=== PATIENT | female | born 1965 | race Caucasian/White ===

== ENCOUNTER 2017-02-03 09:37 | Inpatient (IN) ==
--- NOTE | 2017-02-02 20:22 | Discharge Summary ---
<Bianca Mccarty - Last Filed: 02/02/17 20:19> Date of Encounter: 02/02/17 - Discharge Diagnosis (1) Arthritis of knee, left Priority: Primary Status: Acute (2) Chronic pain Priority: Secondary Status: Chronic Comments: Takes Percocet 5/325mg TID, #90 - last dose 01/20/17. Will increase this to QID for 1-2 weeks. Alprazolam 1 mg TID #90, LD 01/02/17. Qualifiers: Chronic pain type: other chronic pain Qualified Code(s): G89.29 - Other chronic pain (3) CVA (cerebral vascular accident) Priority: Secondary Status: Chronic Qualifiers: CVA mechanism: unspecified Qualified Code(s): I63.9 - Cerebral infarction, unspecified (4) Lumbar radicular pain Priority: Secondary Status: Chronic - Discharge Medications Home Medications: Aripiprazole [Abilify] 20 mg PO DAILY 11/04/16 [History] Clopidogrel Bisulfate [Plavix] 75 mg PO DAILY 11/04/16 [History] ALPRAZolam [Xanax 1 MG Tablet] 1 mg PO TID PRN #9 tablet 02/02/17 [Rx] OxyCODONE/APAP 5/325 [Percocet 5/325 MG] 1 - 2 each PO Q6HR PRN #40 tablet 02/02 [Rx] ALPRAZolam [Xanax 1 MG Tablet] 1 mg PO BID PRN 02/03/17 [History] Aspirin [Lo-Dose Aspirin EC] 81 mg PO DAILY 02/03/17 [History] Atorvastatin Calcium [Lipitor] 20 mg PO HS 02/03/17 [History] Gabapentin [Neurontin] 600 mg PO TID 02/03/17 [History] Multivitamin [One Daily Essential] 1 each PO DAILY 02/03/17 [History] [place]-3/Dha/Epa/Fish Oil [Fish Oil 1,000 mg Softgel] 1 each PO DAILY 02/03/17 [ History] OxyCODONE/APAP 5/325 [Percocet 5/325 MG] 1 each PO Q6HR PRN 02/03/17 [History] Paroxetine HCl [Paxil] 40 mg PO DAILY 02/03/17 [History] Promethazine [Phenergan] 25 mg PO Q6H PRN 02/03/17 [History] Allergies/Adverse Reactions: Allergies ciprofloxacin [From Cipro] Adverse Reaction (Verified 02/03/17 10:41) Kellenes Primary care physician: Kay Salazar - Patient Status Disposition: Transfer Inpatient Rehab Fac Condition: Good - Discharge Instructions Follow Up With: Kay Salazar, SENIOR ASSOCIATE [Primary Care Provider] - - Hospital Course Hospital course: Ms. Chong is a 51 year old female - Time Spent with Patient Total time spent providing and/or coordinating discharge services: <Juan Jose De La Cruz - Last Filed: 02/06/17 08:11> Date of Encounter: 02/06/17 Time of Encounter: 08:09 - Discharge Diagnosis (1) Arthritis of knee, left Priority: Primary Status: Acute (2) Chronic pain Priority: Secondary Status: Chronic Qualifiers: Chronic pain type: other chronic pain Qualified Code(s): G89.29 - Other chronic pain (3) CVA (cerebral vascular accident) Priority: Secondary Status: Chronic Qualifiers: CVA mechanism: unspecified Qualified Code(s): I63.9 - Cerebral infarction, unspecified (4) Acute blood loss anemia Priority: Primary Status: Acute Primary care physician: Kay Salazar - Patient Status Functional capacity at discharge: uses cane/walker Overall status at discharge: patient is progressing back to baseline - Hospital Course Hospital course: Ms. Chong is a 51 year old female The patient had an uneventful postoperative course. They received antibiotics and physical therapy and were discharged in stable condition. There will follow -up in the office in 2 weeks. Patient with postop anemia secondary to blood loss received 3 units of blood prior to discharge. Aspirin DVT prophylaxis - Time Spent with Patient Total time spent providing and/or coordinating discharge services:
--- NOTE | 2017-02-02 20:30 | Physician Discharge Referral ---
ExtendedCare Referral Info Transfer To: [facility] Institutional Level of Care: Skilled - Diagnosis (1) Arthritis of knee, left Status: Acute (2) Chronic pain Priority: Secondary Status: Chronic (3) CVA (cerebral vascular accident) Priority: Secondary Status: Chronic (4) Lumbar radicular pain Priority: Secondary Status: Chronic Prognosis: Good Aware of Diagnosis: Patient Aware of Prognosis: Patient - Transfer Medications Prescriptions: OxyCODONE/APAP 5/325 [Percocet 5/325 MG] 1 - 2 each PO Q6HR PRN #40 tablet PRN Reason: Pain ALPRAZolam [Xanax 1 MG Tablet] 1 mg PO TID PRN #9 tablet PRN Reason: Prevent Allergic Reaction Home Medications: Aripiprazole [Abilify] 20 mg PO 11/04/16 [History] Atorvastatin [Lipitor] 10 mg PO HS 11/04/16 [History] Clopidogrel Bisulfate [Plavix] 75 mg PO 11/04/16 [History] Gabapentin [Neurontin] 800 mg PO TID 11/04/16 [History] Oxybutynin Chloride [Ditropan Xl] 10 mg PO 11/04/16 [History] Paroxetine [Paxil] 20 mg PO DAILY 11/04/16 [History] ALPRAZolam [Xanax 1 MG Tablet] 1 mg PO TID PRN #9 tablet 02/02/17 [Rx] OxyCODONE/APAP 5/325 [Percocet 5/325 MG] 1 - 2 each PO Q6HR PRN #40 tablet 02/02 [Rx] Allergies/Adverse Reactions: Allergies ciprofloxacin [From Cipro] Adverse Reaction (Verified 01/29/17 14:06) Hives - Respiratory Orders Smoking Cessation: Smoking cessation has been advised. For more information, call the [place] Tobacco Quit Line at 5-698-PBWL-NOW. - Ancillary Orders May use pressure relief devices daily prn, May go on VASU w/family/respon alliance party w /meds at nurse discretion PRN, May consult with Dentist, Health Plan Specialist, Ledger Poster PRN - Mobility Orders Ambulate - Rehabiliation Orders Rehab Potential: Good Rehab Orders: ROM Exercises, Evaluation for Physical Therapy, Evaluation for Speech Therapy - Treatments List/Other: Opsite placed, keep intact until follow appt, unless > 50% saturated. Do not get dressing wet. - Diet Orders Regular CERTIFICATION: I certify that the transfer of the above named patient to an Extended Care Facility is necessary for the continuing treatment of the diagnosis listed. The above information is true and accurate reflection of patient's current condition. Confidential - Redisclosure prohibited without a patient's written consent.
[2017-02-03] MEDS ORDERED: CeFAZolin Pre 2,000 MG/100 ML 2,000 MG/100 ML BAG IVPB ONE (09:59)
[2017-02-03] MEDS ORDERED: Ringers Solution, Lactated 1,000 ML IVC SCH ×2 (10:00→15:03)
--- NOTE | 2017-02-03 10:01 | History & Physical Report ---
Date of Encounter: 02/03/17 Time of Encounter: 10:01 24 Hour HP Update - Instructions Instructions: If the History and Physical is less than 30 days old and was completed prior to A.M. admission and or procedure and has NOT been updated on calendar day of procedure please complete this update prior to performing procedure. - Update Patient reports changes in Medical Condition: No Changes in examination, assessment, or condition: No Changes in Medication: No Preop tests/diagnostics Reviewed: Yes Surgery Remains Indicated: Yes Consent for Planned Operative Procedure(s) Verified: Yes - Pre-Operative Checklist Preoperative Checklist Indicated: No Prophylactic Antibiotic Ordered: Yes Is VTE Prophylaxis Indicated?: Yes
[2017-02-03] MEDS ORDERED: *HR* FentaNYL (PF) 100 MCG/2 ML VIAL ONE (10:25)
[2017-02-03] MEDS ORDERED: *HR* Propofol 200 MG/20 ML VIAL IVP ONE (10:25)
[2017-02-03] MEDS ORDERED: *HR* Midazolam HCl 2 MG/2 ML VIAL ONE (10:25)
[2017-02-03] MEDS ORDERED: *HR* HYDROmorphone (PF) 1 MG/ML SYRINGE IVP PRN (10:32)
[2017-02-03] MEDS ORDERED: Famotidine 20 MG/2 ML VIAL IVP ONE (10:45)
[2017-02-03] MEDS ORDERED: Gabapentin 300 MG CAPSULE PO ONE (10:45)
--- NOTE | 2017-02-03 10:48 | Anesthesia Evaluation PreOp ---
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: CVA (Secondary to cardiac septal defect) Other Medical History: Other (Morbid Obesity) Anesthesia History: No Prior Anesthetic Complications : No Alcohol Use: none Drug use: none Medications and Allergies Aripiprazole [Abilify] 20 mg PO DAILY 11/04/16 [History] Clopidogrel Bisulfate [Plavix] 75 mg PO DAILY 11/04/16 [History] ALPRAZolam [Xanax 1 MG Tablet] 1 mg PO TID PRN #9 tablet 02/02/17 [Rx] OxyCODONE/APAP 5/325 [Percocet 5/325 MG] 1 - 2 each PO Q6HR PRN #40 tablet 02/02 [Rx] Allergies ciprofloxacin [From Cipro] Adverse Reaction (Verified 02/03/17 10:41) Hives - Meds/Allergy Pre-op Review Medications Reviewed: Yes Allergies Reviewed: Yes Beta Blockers on Current Med List: No Anesthesia Results - Labs Laboratory Tests 01/29/17 01/29/17 14:12 14:12 Hgb 12.3 Hct 37.0 Plt Count 182 Sodium 140 Potassium 3.5 BUN 10 Creatinine 0.80 - Imaging EKG: report reviewed (SR) Anesthesia Exam O2 Sat Height 1.73 m Height 1.73 m Height 1.73 m Weight 118.388 kg Weight 118.388 kg Weight 118.388 kg O2 Sat by Pulse Oximetry 93 O2 Sat by Pulse Oximetry 93 Vital Signs Temp Pulse Resp BP Pulse Ox 98.7 F 87 18 134/90 93 02/03/17 10:01 02/03/17 10:01 02/03/17 10:01 02/03/17 10:01 02/03/17 10:01 Height: 5'8 Weight: 261 lbs NPO (# of Hours): MN Pain Scale: 0 - HEENT Pupil (Motor): Pupils equal, EOMI Mallampati: III Teeth: Normal Oral Opening: Less than or equal to 3 - ELECTRONIC PUBLISHER LOC: Oriented ELECTRONIC PUBLISHER Motor: Normal LUE, Normal LLE, Normal Face, Deficit RUE (slight weakness), Deficit RLE (slight weakness) ELECTRONIC PUBLISHER Sensory: Normal: RUE, LUE, RLE, LLE, Face - Cardiac Rhythm: Regular Murmur: None JVD: No Carotid Bruit: No - Pulmonary Breath Sounds: bilateral Clear Respiratory Effort: Symmetrical Anesthesia Assess/Plan ASA Score: 3 (CVA MO SIMEON) Modified Bev Scale for Level of Consciousness: Cooperative, oriented, and tranquil Anesthetic Plan: General, Regional Monitoring Plan: Standard Monitors Recovery Plan: PACU (Discussed GA and RA, agrees to proceed)
[2017-02-03] MEDS ORDERED: *HR* Midazolam HCl 5 MG/5 ML VIAL IVP ONE (11:01)
[2017-02-03] MEDS ORDERED: Dexamethasone 4 MG/ML VIAL ONE (11:38)
[2017-02-03] MEDS ORDERED: Ondansetron 4 MG/2 ML VIAL ONE (11:38)
[2017-02-03] MEDS ORDERED: Lidocaine -MPF 2% 2 ML VIAL ONE (11:38)
--- NOTE | 2017-02-03 11:49 | Anesthesia Procedures ---
Date of Encounter: 02/03/17 Time of Encounter: 10:45 Procedures: Anesthesia - Nerve Block Procedure Date: 02/03/17 Time: 11:15 Pre-op Diagnosis: Osteoarthritis Knee Surgical Procedure: TKA Checklist: Correct Patient Identifier Correct side: Left Blood Thinner: No Monitor Applied: EKG, BP, Pulse Oximetry Supplemental Oxygen via Nasal Cannula (L/min): 2 Sedation: Versed (mg): 5 Sedation: Fentanyl (mcg): 50 Indication: Post Op Analgesia Pre-op Neuro Deficits: Yes (slight right side deficit) Block Type: Femoral, Other (IPACK) Catheter placed: No Depth at skin (cm): 3 Sterile Technique: Yes Ultrasound used: Yes Anatomy identified: Yes Visual spread of Local: Yes Neuro Stimulation: Yes Nerve Stimulator Range: >0.4 - 0.6 mA Blood on Needle Aspiration: No Smooth Injection of Local: Yes Pain with Injection of Local: No Prep: Chlorhexadine Needle: 22 x 50 mm Stimuplex Local: 0.25% Bupivicaine w/Clonidine 20 mcg/cc, Other (Marcine 0.5%) Volume (cc): 30 Number of Attempts: 1 Complications: None/effective block Vitals: Vital Signs/O2 Sat/Glucose, Most Current Temp Pulse Resp BP Pulse Ox 02/03/17 11:27 88 16 137/94 97 02/03/17 11:18 98 16 143/92 98 02/03/17 11:07 98.7 F 84 18 142/83 98 02/03/17 10:04 98.7 F 87 18 134/90 93 02/03/17 10:01 98.7 F 87 18 134/90 93
[2017-02-03] MEDS ORDERED: *HR* Rocuronium Bromide 50 MG/5 ML VIAL ONE (12:09)
--- NOTE | 2017-02-03 12:30 | Orthopedic Operative Note ---
Date of procedure: 02/03/17 Pre-op diagnosis: Left knee arthritis Post-op diagnosis: same Procedure: Procedure: Left Total knee replacement Estimated blood loss: 600 cc Hardware: Metal and polyethylene replacement: Biomet Femur: 70, 16 x 120 Tibia: 75, 14 x 120 Nevaeh insert: 10 Patella: 34 Exam Under anesthesia: Full flexion and extension no instability Procedural Notes: Grade 4 arthritic changes medial compartment and patellofemoral joint. Operative procedure: The patient was brought to the operating room and placed on the operating room table. After general anesthesia was administered the operative knee was examined. Findings were noted in the exam under anesthesia. The operative extremity was prepped and draped in sterile surgical fashion. The patient received IV antibiotics prior to skin incision. A standard midline incision was made centered over the patella. The incision was made through the skin and subcutaneous tissue. A medial parapatellar tendon approach was performed. Care was taken to preserve tissue along the medial aspect of the patella. And to protect the patella tendon. The deep MCL was released off the medial tibia. The infra patella fat pad was excised. Knee was brought into flexion. Patient noted to have grade 4 arthritic changes medial compartment and patellofemoral joint. The entry hole was made for the intramedullary femoral guide. The guide was seated in 6 degrees of valgus. Anterior cut was made followed by the distal cut. The PCL the medial and the lateral menisci were excised. The tibia was subluxed forward. The entry hole was made for the intramedullary tibial guide. Guide was seated to resect 2 mm off the more abnormal side. The knee was brought into flexion the distal femur was sized to a 70 The femur was first reamed to a 16 x 120 The femoral guide was seated, the anterior cut was made followed by the posterior condylar cut, followed by the chamfer cuts. The finishing guide was seated the box cut was made. Trial had good fit and fixation The tibia was sized to a an 75 The tibia was first reamed 14 x 120 Trial reduction revealed full extension no varus valgus instability with the appropriate 10 insert. The patella was everted and cut was made at the level of the insertion of the quadriceps and patella tendon. The patella was sized to a 34 the guide was seated and the lug holes are drilled. Trial reduction revealed excellent patella tracking. All trial components were removed all bony surfaces were irrigated. Components were assembled on the back table. The femur was cemented first followed by the tibia. The 10 Nevaeh was seated and secured. The knee was brought into full extension. The patella was cemented and held in place with the patellar holding clamp. After the cement had hardened, the knee sat for 2 minutes with a Betadine saline solution. The knee was then irrigated out with 2 L of pulse irrigation. The extensor mechanism was closed with #2 FiberWire suture and #2 PDS suture. The subcutaneous tissue was then irrigated and closed deep with #1 PDS suture superficially with 0 PDS suture and skin was closed with skin mars The patient was then placed in a sterile dressing and a postoperative brace extubated and transferred to recovery room in stable condition. Anesthesia: LISSETTE Surgeon: Juan Jose De La Cruz [employer] Operator: Bianca Mccarty Condition: stable Disposition: PACU
[2017-02-03] MEDS ORDERED: Neostigmine Methylsulfate 3 MG/3 ML SYRINGE ONE (12:45)
[2017-02-03] MEDS ORDERED: Ketorolac 30 MG/ML VIAL ONE (13:37)
--- NOTE | 2017-02-03 13:58 | Anesthesia Evaluation Post Op ---
Date of Encounter: 02/03/17 Time of Encounter: 13:54 - Vital Signs Vital Signs: vss - Lungs Lungs: Clear Ascult./Percussion - Airway Airway: Non-obstructed - Cardiovascular Baseline Rhythm - Mental Status Mental Status: Asleep with brisk response to light stimulation - Pain Pain Scale used: Lucero-Escobar (Faces) - Nausea Vomiting Nausea Vomiting: Not Present - Hydration Hydration: Ice chips - Discharge PostOp Status: Transfer Patient to floor (SIMEON patient with CPAP usage at home, continuous pulse ox ordered.)
[2017-02-03 14:02] LABS: Hematocrit 35.7 % (35.3-44.9); Hemoglobin 11.8 g/dL (11.5-15.4)
[2017-02-03] MEDS ORDERED: Sennosides 8.6 MG TABLET PO PRN (15:03)
[2017-02-03] MEDS ORDERED: *HR* OxyCODONE Immed Rel 5 MG TABLET PO PRN (15:03)
[2017-02-03] MEDS ORDERED: Naloxone 0.4 MG/ML INJ IVP PRN (15:03)
[2017-02-03] MEDS ORDERED: MOM Conc 10 ML UD.LIQ PO PRN (15:03)
[2017-02-03] MEDS ORDERED: Ondansetron 4 MG/2 ML VIAL IVP PRN (15:03)
[2017-02-03] MEDS: ceFAZolin 3,000 MG in D5% in Water 100 ML IVPB SCH (15:57)
[2017-02-03] MEDS: Gabapentin 300 MG CAPSULE PO SCH ×2 (15:58→21:34)
[2017-02-03] MEDS ORDERED: Bupivacaine/Clonidine Syringe 1 EACH SYRINGE ONE (17:06)
[2017-02-03] MEDS: *HR* Enoxaparin 30 MG/0.3 ML SYRINGE SQ SCH (17:58)
[2017-02-03] MEDS ORDERED: *HR* Enoxaparin 30 MG/0.3 ML SYRINGE SQ SCH (18:00)
[2017-02-03] MEDS ORDERED: Temazepam 15 MG CAPSULE PO PRN (21:00)
[2017-02-03] MEDS: ALPRAZolam 1 MG TABLET PO PRN (21:38)
[2017-02-04] MEDS: ceFAZolin 3,000 MG in D5% in Water 100 ML IVPB SCH
[2017-02-04] MEDS: *HR* OxyCODONE Immed Rel 5 MG TABLET PO PRN ×4 (00:29→22:46)
[2017-02-04] MEDS: *HR* Enoxaparin 30 MG/0.3 ML SYRINGE SQ SCH ×2 (05:35→16:07)
[2017-02-04 05:51] LABS: Hematocrit 27.4 % (35.3-44.9)
[2017-02-04 05:54] LABS: Hemoglobin 8.9 g/dL (11.5-15.4)
[2017-02-04 06:06] LABS: BUN/Creatinine Ratio 16 (6-26); Blood Urea Nitrogen 13 mg/dL (7-20); Calcium 8.2 mg/dL (8.6-10.8); Carbon Dioxide 27 mEq/L (19-29); Chloride 102 mEq/L (98-109); Glucose 133 mg/dL (70-99); Osmolality,Calculated 284 (280-300); Potassium 4.3 mEq/L (3.5-4.5); Sodium 136 mEq/L (136-145); eGFR For African Americans > 60 (> 60); eGFR For Non-African Americans > 60 (> 60)
--- NOTE | 2017-02-04 06:41 | Orthopedics Progress Note ---
Date of Encounter: 02/04/17 Time of Encounter: 06:41 - Assessment and Plan (1) Arthritis of knee, left Current Visit: Yes Status: Acute (2) Chronic pain Current Visit: Yes Status: Chronic Qualifiers: Chronic pain type: other chronic pain Qualified Code(s): G89.29 - Other chronic pain (3) CVA (cerebral vascular accident) Current Visit: Yes Status: Chronic Qualifiers: CVA mechanism: unspecified Qualified Code(s): I63.9 - Cerebral infarction, unspecified Subjective Interval history: Patient was seen this morning doing well without complaints. Afebrile vital signs stable. Operative extremity: Neurovascularly intact Dressing clean dry and intact Calves nontender Assessment and plan: Continue with postoperative care Hemoglobin 8.9 Objective Vital signs: Vital Signs Temp Pulse Resp BP Pulse Ox 02/04/17 03:58 98.5 F 115 17 120/83 96 02/03/17 23:38 98.3 F 101 19 93/62 96 02/03/17 17:35 98.1 F 98 15 101/76 97 02/03/17 17:10 97.6 F 108 15 80/69 98 02/03/17 17:04 93 15 107/78 100 02/03/17 15:27 98.4 F 93 15 107/78 100 02/03/17 15:05 98.5 F 89 16 115/74 99 02/03/17 14:36 98.4 F 88 15 100/70 99 02/03/17 14:30 98.4 F 88 15 100/70 99 02/03/17 13:54 99.5 F 89 16 95/69 100 02/03/17 13:44 91 16 103/73 98 02/03/17 13:34 98.4 F 85 16 99/63 100 02/03/17 13:24 76 14 88/57 95 02/03/17 13:14 92 16 120/82 100 02/03/17 13:04 99.5 F 99 16 106/86 100 02/03/17 11:27 88 16 137/94 97 02/03/17 11:18 98 16 143/92 98 02/03/17 11:07 98.7 F 84 18 142/83 98 02/03/17 10:04 98.7 F 87 18 134/90 93 02/03/17 10:01 98.7 F 87 18 134/90 93 Intake and Output 02/03/17 02/03/17 02/04/17 15:59 23:59 07:59 Intake Total 100 / 100 220 / 220 Output Total 600 / 600 0 / 0 Balance -500 / -500 220 / 220 Intake: IV Fluids 100 / 100 100 / 100 Ancef Premix 2,000 MG/100 100 / 100 ML 2,000 mg In 100 ml @ 200 mls/hr IVPB PREOP ONE Rx#:[id number] Ancef 3,000 MG In 100 / 100 Dextrose 5% 100 ML @ 200 mls/hr IVPB Q8HR JENNIFER Rx#: [id number] Oral 120 / 120 Output: Urine 0 / 0 Estimated Blood Loss 600 / 600 Other: # Bowel Movements 0 Weight 118.388 kg - Labs CBC & BMP: 02/04/17 04:51 02/04/17 04:51 Labs: Abnormal lab results Hgb 8.9 g/dL (11.5-15.4) L D 02/04/17 04:51 Hct 27.4 % (35.3-44.9) L 02/04/17 04:51 Glucose 133 mg/dL (70-99) H 02/04/17 04:51 Calcium 8.2 mg/dL (8.6-10.8) L 02/04/17 04:51 - VTE Documentation of Mechanical Device: Venous foot pump, device Consult Discharge Plan - Plan Referrals: Kay Salazar, RAIL OPERATOR [Primary Care Provider] -
[2017-02-04] MEDS: Gabapentin 300 MG CAPSULE PO SCH ×3 (09:25→20:53)
[2017-02-04] MEDS: *HR* HYDROmorphone (PF) 1 MG/ML SYRINGE IVP PRN ×3 (09:26→20:53)
[2017-02-04] MEDS: ARIPiprazole 10 MG TABLET PO SCH (09:26)
[2017-02-04] MEDS: (Omega-3/Dha/Epa/Fish Oil [Fish Oil 1,000 Mg Softgel] PO SCH (09:26)
[2017-02-04] MEDS: Aspirin Enteric Coated 81 MG Tablet PO SCH (09:26)
[2017-02-04] MEDS: Multivit/Ca/Min/Fe/FA 1 TAB TABLET PO SCH (09:26)
[2017-02-04] MEDS: ALPRAZolam 1 MG TABLET PO PRN (22:54)
[2017-02-05] MEDS: *HR* HYDROmorphone (PF) 1 MG/ML SYRINGE IVP PRN ×2 (00:33→20:30)
[2017-02-05 04:55] LABS: Hematocrit 23.9 % (35.3-44.9)
[2017-02-05] MEDS: *HR* Enoxaparin 30 MG/0.3 ML SYRINGE SQ SCH ×2 (05:01→17:49)
[2017-02-05] MEDS: *HR* OxyCODONE Immed Rel 5 MG TABLET PO PRN ×3 (05:01→13:39)
[2017-02-05 05:09] LABS: BUN/Creatinine Ratio 14 (6-26); Blood Urea Nitrogen 10 mg/dL (7-20); Calcium 8.3 mg/dL (8.6-10.8); Carbon Dioxide 28 mEq/L (19-29); Chloride 99 mEq/L (98-109); Glucose 140 mg/dL (70-99); Osmolality,Calculated 281 (280-300); Potassium 4.2 mEq/L (3.5-4.5); Sodium 135 mEq/L (136-145); eGFR For African Americans > 60 (> 60); eGFR For Non-African Americans > 60 (> 60)
[2017-02-05] MEDS ORDERED: Furosemide 20 MG/2 ML VIAL IVP ONE ×2 (07:29→14:29)
--- NOTE | 2017-02-05 08:25 | Orthopedics Progress Note ---
Date of Encounter: 02/05/17 Time of Encounter: 08:25 - Assessment and Plan (1) Arthritis of knee, left Current Visit: Yes Status: Acute (2) Chronic pain Current Visit: Yes Status: Chronic Qualifiers: Chronic pain type: other chronic pain Qualified Code(s): G89.29 - Other chronic pain (3) CVA (cerebral vascular accident) Current Visit: Yes Status: Chronic Qualifiers: CVA mechanism: unspecified Qualified Code(s): I63.9 - Cerebral infarction, unspecified (4) Acute blood loss anemia Current Visit: Yes Status: Acute Subjective Interval history: Patient was seen this morning doing well without complaints. Afebrile vital signs stable. Operative extremity: Neurovascularly intact Dressing clean dry and intact Calves nontender Assessment and plan: Continue with postoperative care hct 23 2 units prbc Objective Vital signs: Vital Signs Temp Pulse Resp BP Pulse Ox 02/05/17 07:44 98.1 F 124 20 108/72 96 02/05/17 04:27 98 F 123 20 125/76 97 02/04/17 22:16 99.6 F 134 18 135/87 96 02/04/17 19:53 98.2 F 114 16 133/85 97 02/04/17 15:08 98.2 F 121 16 103/72 97 02/04/17 10:54 97.6 F 109 17 113/80 94 Intake and Output 02/04/17 02/05/17 02/05/17 23:59 07:59 15:59 Output Total 300 / 300 Balance -300 / -300 Output: Urine 300 / 300 Other: Meal Dinner Percent of Meal Consumed 5% - Labs CBC & BMP: 02/05/17 04:13 02/05/17 04:13 Labs: Abnormal lab results Hgb 8.0 g/dL (11.5-15.4) L 02/05/17 04:13 Hct 23.9 % (35.3-44.9) L 02/05/17 04:13 Sodium 135 mEq/L (136-145) L 02/05/17 04:13 Glucose 140 mg/dL (70-99) H 02/05/17 04:13 Calcium 8.3 mg/dL (8.6-10.8) L 02/05/17 04:13 - VTE Documentation of Mechanical Device: Intermittent pneumatic compression device Consult Discharge Plan - Plan Referrals: Kay Salazar, ROSEMARIE [Primary Care Provider] -
[2017-02-05] MEDS: ARIPiprazole 10 MG TABLET PO SCH (09:12)
[2017-02-05] MEDS: Gabapentin 300 MG CAPSULE PO SCH ×3 (09:13→20:37)
[2017-02-05] MEDS: Aspirin Enteric Coated 81 MG Tablet PO SCH (09:13)
[2017-02-05] MEDS: Multivit/Ca/Min/Fe/FA 1 TAB TABLET PO SCH (09:13)
[2017-02-05] MEDS: (Omega-3/Dha/Epa/Fish Oil [Fish Oil 1,000 Mg Softgel] PO SCH (09:13)
[2017-02-05] MEDS ORDERED: 0.9 % Sodium Chloride 250 ML ONE ×2 (09:51→14:29)
--- NOTE | 2017-02-05 17:52 | Electrocardiograph Report ---
[place] [id number] Test Date: 2017-02-04 Pat Name: Raya Chong Department: 114 Room: [facility] Gender: F Electronic Lab Technician: MICHELLE : 1965 Requested By: Juan Jose De La Cruz Order Number: [id number] Reading MD: Amaury Jovel MD Measurements Intervals [place] Rate: 132 P: 43 [place]: 149 QRS: -20 QRSD: 96 T: 59 QT: 325 QTc: 403 Interpretive Statements SINUS TACHYCARDIA INCOMPLETE RIGHT BUNDLE BRANCH BLOCK LEFT VENTRICULAR HYPERTROPHY Electronically Signed On 02-05-2017 17:50:46 EDT by Amaury Jovel MD
[2017-02-06] MEDS: *HR* HYDROmorphone (PF) 1 MG/ML SYRINGE IVP PRN ×2 (02:00→06:27)
[2017-02-06] MEDS: *HR* Enoxaparin 30 MG/0.3 ML SYRINGE SQ SCH (05:04)
[2017-02-06 05:19] LABS: Hematocrit 24.6 % (35.3-44.9); Hemoglobin 8.1 g/dL (11.5-15.4)
[2017-02-06] MEDS ORDERED: Furosemide 20 MG/2 ML VIAL IVP ONE (06:13)
[2017-02-06] MEDS: (Omega-3/Dha/Epa/Fish Oil [Fish Oil 1,000 Mg Softgel] PO SCH (09:19)
[2017-02-06] MEDS: Multivit/Ca/Min/Fe/FA 1 TAB TABLET PO SCH (09:28)
[2017-02-06] MEDS: Aspirin Enteric Coated 81 MG Tablet PO SCH (09:28)
[2017-02-06] MEDS: ARIPiprazole 10 MG TABLET PO SCH (09:28)
[2017-02-06] MEDS: Gabapentin 300 MG CAPSULE PO SCH ×2 (09:29→14:21)
[2017-02-06] MEDS: *HR* OxyCODONE Immed Rel 5 MG TABLET PO PRN ×2 (09:29→14:21)
[2017-02-06] MEDS ORDERED: 0.9 % Sodium Chloride 250 ML ONE (10:03)
[2017-02-06 15:05] VITALS: BP 138/81
[2017-02-06] MEDS ORDERED: Furosemide 20 MG TABLET PO ONE (15:08)
== END 2017-02-06 15:45 | DRG 302 ==
LOC: SAMDAY 09:37 → 3NENU 14:06
PROVIDERS: ADMIT Orthopaedic Surgery; ATTEND Orthopaedic Surgery

== ENCOUNTER 2018-08-24 12:08 | Inpatient (IN) ==
[2018-08-24] MEDS ORDERED: ROPIVACAINE HCL/PF 0.5% 30 ML VIAL ONE ×2 (12:25→13:06)
[2018-08-24] MEDS ORDERED: Bupivacaine/Clonidine Syringe 1 EACH SYRINGE ONE ×2 (12:25→13:07)
--- NOTE | 2018-08-24 12:49 | History & Physical Report ---
Date of Encounter: 08/24/18 Time of Encounter: 12:48 24 Hour HP Update - Instructions Instructions: If the History and Physical is less than 30 days old and was completed prior to A.M. admission and or procedure and has NOT been updated on calendar day of procedure please complete this update prior to performing procedure. - Update Patient reports changes in Medical Condition: No Changes in examination, assessment, or condition: No Changes in Medication: No Preop tests/diagnostics Reviewed: Yes Surgery Remains Indicated: Yes Consent for Planned Operative Procedure(s) Verified: Yes - Pre-Operative Checklist Preoperative Checklist Indicated: No Prophylactic Antibiotic Ordered: Yes Is VTE Prophylaxis Indicated?: Yes
--- NOTE | 2018-08-24 12:50 | Anesthesia Evaluation PreOp ---
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 Has had VSD repair 3 years ago), Other (anxiety depression) Other Medical History: Other (obeisty BMI 41) Anesthesia History: No Prior Anesthetic Complications, Past Anesthesia Alcohol Use: none Drug use: none Medications and Allergies Aripiprazole [Abilify] 20 mg PO DAILY 11/04/16 [History] Clopidogrel Bisulfate [Plavix] 75 mg PO DAILY 11/04/16 [History] ALPRAZolam [Xanax 1 MG Tablet] 1 mg PO TID PRN 02/03/17 [History] Aspirin [Lo-Dose Aspirin EC] 81 mg PO DAILY 02/03/17 [History] Atorvastatin Calcium [Lipitor] 20 mg PO HS 02/03/17 [History] Gabapentin [Neurontin] 600 mg PO TID 02/03/17 [History] Multivitamin [One Daily Essential] 1 each PO DAILY 02/03/17 [History] Paroxetine HCl [Paxil] 40 mg PO DAILY 02/03/17 [History] Lisinopril [Zestril] 10 mg PO DAILY 11/21/17 [History] HYDROcodone/Acet 5/325 mg [[place] 5-325 mg] 1 tab PO Q6H PRN 4 Days #12 tab 05/29/18 [Rx] Aspirin Enteric Coated [Aspirin EC] 325 mg PO BID #20 tablet. 08/23/18 [Rx] Docusate [Colace] 100 mg PO BID 10 Days #20 capsule 08/23/18 [Rx] OxyCODONE Immed Rel [Roxicodone 5 MG] 5 mg PO Q6HR PRN 7 Days #28 tablet 08/23/18 [Rx] Allergy/AdvReac Type Severity Reaction Status Date / Time ciprofloxacin [From Cipro] AdvReac Hives Verified 08/24/18 12:48 - Meds/Allergy Pre-op Review Medications Reviewed: Yes Allergies Reviewed: Yes Anesthesia Results - Labs Laboratory Tests 01/02/19 01/02/19 01/02/19 16:30 16:30 16:30 WBC 4.0 L Hgb 11.7 Hct 36.4 Plt Count 234 PT 10.8 INR 1.0 APTT 35.0 Sodium 138 Potassium 4.3 Chloride 102 Carbon Dioxide 29 BUN 15 Creatinine 0.57 L Est GFR (Non-Af Amer) > 60 - Imaging EKG: report reviewed (SINUS RHYTHM INCOMPLETE RIGHT BUNDLE BRANCH BLOCK MODERATE VOLTAGE CRITERIA FOR LVH, CONSIDER NORMAL VARIANT NONSPECIFIC ST-T CHANGES) Anesthesia Exam Vital Signs/O2 Sat/Glucose, Most Recent Temp Pulse Resp BP Pulse Ox 97.3 F L 99 18 146/95 98 08/24/18 12:31 08/24/18 12:31 08/24/18 12:31 08/24/18 12:31 08/24/18 12:31 Weight: 120 kg NPO (# of Hours): > 8 hr - HEENT Pupil (Motor): Pupils equal Mallampati: III Denture Type: Lower: Complete Oral Opening: Greater than 3 - DESIGN ARCHITECT LOC: Oriented DESIGN ARCHITECT Motor: Normal RUE, Normal RLE, Normal Face, Deficit LUE, Deficit LLE DESIGN ARCHITECT Sensory: Normal: RUE, RLE, Face, Deficit: LUE, LLE - Cardiac Rhythm: Regular Murmur: None - Pulmonary Breath Sounds: bilateral Clear Respiratory Effort: Symmetrical Anesthesia Assess/Plan ASA Score: 3 Level of consciousness: Cooperative, Oriented, Tranquil Anesthetic Plan: General, Regional Nerve Block Regional Nerve Block Plan: Femoral, IPACK Reason for No Neuroaxial/Regional Block: Patient on blood thinner (plavix 08/24/2018 last dose) Monitoring Plan: Standard Monitors Recovery Plan: PACU
[2018-08-24] MEDS ORDERED: CeFAZolin Syr 2,000MG/20 ML 2,000 MG/20 ML SYRINGE IVPB ONE (12:51)
[2018-08-24] MEDS ORDERED: Acetaminophen IV 1,000 MG/100 ML INFUS..BTL IVPB ONE (12:57)
[2018-08-24] MEDS ORDERED: Famotidine 20 MG/2 ML VIAL IVP ONE (12:57)
[2018-08-24] MEDS ORDERED: Gabapentin 300 MG CAPSULE PO ONE (12:57)
[2018-08-24] MEDS ORDERED: Celecoxib 100 MG CAPSULE PO ONE (12:57)
[2018-08-24] MEDS ORDERED: Ringers Solution, Lactated 1,000 ML IVC SCH ×2 (13:00→16:09)
[2018-08-24] MEDS ORDERED: *HR* OxyCODONE Immed Rel 5 MG TABLET PO PRN (13:01)
[2018-08-24] MEDS ORDERED: *HR* Promethazine 25 MG/ML VIAL IVP PRN (13:01)
[2018-08-24] MEDS ORDERED: Ondansetron 4 MG/2 ML VIAL IVP ONE (13:01)
[2018-08-24] MEDS ORDERED: Dexamethasone 4 MG/ML VIAL ONE ×2 (13:08→14:29)
[2018-08-24] MEDS ORDERED: Ethanol\\Acetic Acid\\Na Ace\\Ben 1,000 ML IRRIG.SOLN IR ONE (13:23)
[2018-08-24] MEDS ORDERED: *HR* FentaNYL (PF) 100 MCG/2 ML VIAL ONE ×2 (14:07→15:32)
[2018-08-24] MEDS ORDERED: *HR* Succinylcholine 200 MG/10 ML VIAL IVP ONE (14:29)
[2018-08-24] MEDS ORDERED: Lidocaine -MPF 2% 2 ML VIAL ONE (14:29)
[2018-08-24] MEDS ORDERED: Lidocaine -MPF 4% 5 ML AMPUL ONE (14:29)
[2018-08-24] MEDS ORDERED: Ondansetron 4 MG/2 ML VIAL ONE (14:29)
--- NOTE | 2018-08-24 14:45 | Orthopedic Operative Note ---
Date of procedure: 08/24/18 Pre-op diagnosis: Recurrent left patellar total knee instability Post-op diagnosis: same Procedure: Procedure: Open left medial patellofemoral ligament reconstruction with allograft Rec: One Arthrex 9 x 35 bio composite interference screw. Findings: No obvious abnormal rotation of femoral implant no evidence of infection no abnormal patella where Estimated blood loss: 100 mL Procedure: Patient brought to the operating placed on the operative table after general anesthesia was administered left knee was examined patient noted to have full motion no gross instability. The left lower extremity was prepped and draped in the sterile surgical fashion patient received IV antibiotics prior skin incision the incision was made through the old incision through the skin and subcutaneous tissue, hemostasis was obtained with Bovie cautery. Using careful sharp dissection the extensor mechanism was identified. A medial parapatellar tendon approach was performed, care was taken to preserve tissue along the medial aspect of the patella to protect the patella tendon. Fluid encountered was serosanguineous cultures and Gram stain were obtained. Examination of the femoral component revealed no obvious evidence of abnormal rotation, examination of the patella component revealed no evidence of abnormal wear. Decision was made to do a medial patellofemoral ligament reconstruction with allograft. A guidepin was placed across the patella and this was overreamed with a 4 mm reamer. An allograft was fashioned on the back table to fit through this bone tunnel. It was passed without incident. A guidepin was then placed posterior to the stem from medial to lateral with in the incision. This was all extracapsular. This was passed without incident: Overreamed with a 7 mm reamer. The graft was delivered into the femoral socket. Reduction reve aled stable centralization of the patella component. This is then fixed in 45 degrees of flexion. With full tension on the graft. This was secured with a 9 x 35 mm Arthrex bio composite interference screw. This gave good fixation. The extensor mechanism was then repaired and this reduced fashion in a pants over vest fashion with interrupted [id number] vertical #5 FiberWire suture. This was then augmented with a running #5 FiberWire suture. The PA then closed the knee in layers with PDS and Monocryl and skin mars. Patient was placed in a sterile dressing postoperative cast extubated and transferred to recovery room in stable condition. Anesthesia: GETA Surgeon: Juan Jose De La Cruz Was there an administrative services assistant present: Yes Wet Press Tender: Milka Ram Estimated blood loss (cc): 100 Condition: stable Disposition: PACU
[2018-08-24] MEDS ORDERED: *HR* Midazolam HCl 2 MG/2 ML VIAL ONE (15:07)
[2018-08-24] MEDS: *HR* HYDROmorphone (PF) 1 MG/ML SYRINGE IVP PRN ×2 (15:31→15:47)
--- NOTE | 2018-08-24 15:38 | Discharge Summary ---
- NOTES TO OUTPATIENT PROVIDER Notes to Outpatient Provider: Follow up with PCP within 1 week. Follow up with neurology within 2-3 weeks. Orders not resulted at time of discharge: Pending orders 08/24/18 00:01 XR knee LT 1-2V [XR] Routine H/H [Hemoglobin and Hematocrit] [HEME] Routine 08/24/18 07:22 US anesthesia pain block [US] Routine 08/24/18 14:22 Culture,Anaerobic [RM] Routine Culture,Wound [RM] Routine Gram Stain [RM] Routine 08/24/18 14:44 Culture,Anaerobic [RM] Routine Culture,Tissue (Biopsy) [RM] Routine Date of Encounter: 08/28/18 Time of Encounter: 12:40 - Discharge Diagnosis (1) Patellar instability of left knee Priority: Primary Status: Acute (2) Status post total left knee replacement Priority: Primary Status: Acute (3) Hypertension Priority: Secondary Status: Acute Qualifiers: Hypertension type: unspecified Qualified Code(s): I10 - Essential (primary) hypertension (4) SIMEON on CPAP Priority: Secondary Status: Acute (5) Hyperlipidemia Priority: Secondary Status: Acute Qualifiers: Hyperlipidemia type: unspecified Qualified Code(s): E78.5 - Hyperlipidemia, unspecified (6) Anxiety and depression Priority: Secondary Status: Acute (7) Arthritis of knee, left Priority: Secondary Status: Acute (8) CVA (cerebral vascular accident) Priority: Secondary Status: Suspected Qualifiers: CVA mechanism: unspecified Qualified Code(s): I63.9 - Cerebral infarction, unspecified (9) Chronic pain Priority: Secondary Status: Chronic Qualifiers: Chronic pain type: other chronic pain Qualified Code(s): G89.29 - Other chronic pain (10) Lumbar radicular pain Priority: Secondary Status: Chronic (11) Right sided weakness Priority: Secondary Status: Acute - Hospital Course Hospital course: Ms. Chong is a 52 year old female status post Open left medial patellofemoral ligament reconstruction with allograft 08/24/18 with history of patellar instability, HTN, SIMEON on CPAP, h/o CVA, depression/anxiety, HLD. She has a LLC in place and she participated in therapy doing well with a walker. She originally was planned to discharge on 08/26 but at that time she admitted to having worsening tingling and weakness to her right leg and arm and noted to have some difficulty with speech as well and stroke alert was called. CT brain showed no acute bleeding or midline shift, MRI head showed no acute infart. She was evaluated by [facility] stroke teledoc and determined to not be a TPA candidate. Hospitalist was consulted for a stroke workup. Echo was performed and showed non-diagnostic of PFO with agitated bubble study. She has had a prior PFO closure and has a loop recorder (follows at [facility]). Neurology was also consulted and recommended a carotid study which showed 40-50% stenosis to the left distal ICA. Hospitalist and neurologist both in agreement with patient being discharged with her normal plavix and aspirin but increase atorvastatin to 80mg. She will follow up with PCP within 1-2 weeks and neurology in 2-3 weeks. She is stable for discharge at this time. Patient seen at bedside, without complaints. A&O x 3. States she is feeling better. Still has a little residual tingling to right leg but much improved and weakness has improved. She states she is more comfortable in therapy and using walker. Afebrile, vital signs stable. long leg cast intact with no skin breakdown. foot still slightly in plantar flexion but improved from previous cast, patient states she is able to walk better in this one and does not cause a tripping hazard. good motion and sensation to toes Labs reviewed. stable, asymptomatic Pain control: adequate Participating in PT. WBAT All questions and concerns addressed. Educated on use of incentive spirometer. Encouraged ambulation and proper hydration. Patient educated on post-operative restrictions and post-operative care. Assessment and plan: Continue with postoperative care Discharge plan: Home with home health, discharge today - Time Spent with Patient Total time spent providing and/or coordinating discharge services: - Discharge Medications Home Medications: Aripiprazole [Abilify] 20 mg PO DAILY 11/04/16 [History] Clopidogrel Bisulfate [Plavix] 75 mg PO DAILY 11/04/16 [History] ALPRAZolam [Xanax 1 MG Tablet] 1 mg PO TID PRN 02/03/17 [History] Multivitamin [One Daily Essential] 1 each PO DAILY 02/03/17 [History] Paroxetine HCl [Paxil] 40 mg PO DAILY 02/03/17 [History] Lisinopril [Zestril] 10 mg PO DAILY 11/21/17 [History] HYDROcodone/Acet 5/325 mg [[place] 5-325 mg] 1 tab PO Q6H PRN 4 Days #12 tab 05/29/18 [Rx] Aspirin Enteric Coated [Aspirin EC] 325 mg PO BID #20 tablet. 08/23/18 [Rx] Docusate [Colace] 100 mg PO BID 10 Days #20 capsule 08/23/18 [Rx] OxyCODONE Immed Rel [Roxicodone 5 MG] 5 mg PO Q6HR PRN 7 Days #28 tablet 08/23/18 [Rx] Atorvastatin Calcium [Lipitor] 80 mg PO HS #0 08/28/18 [Rx] Allergies/Adverse Reactions: Allergy/AdvReac Type Severity Reaction Status Date / Time ciprofloxacin [From Cipro] AdvReac Hives Verified 08/24/18 12:48 Date of admission: 08/24/18 Primary care physician: Kay Salazar Consults: 08/24/18 16:09 Consult to Occupational Therapy [CONS] Routine Comment: Evaluate, develop and implement POC Reason for Consult: post knee surgery Does patient have active BEDREST order?: No Is patient medically & hemodynamically stable?: Yes Consult to Orthopedic Navigator [CONS] [CONS] Routine Consult to Physical Therapy [CONS] Routine Comment: Evaluate, develop and impliment POC Reason for Consult: post knee surgery Does patient have active BEDREST order?: No Is patient medically & hemodynamically stable?: Yes Consult to Brake Linings Coater [CONS] Routine Reason for SW Consult: post op joint replacement RT Post Op Consult [CONS] Routine 08/26/18 14:46 Consult to Hospitalist [CONS] Stat Consulting Provider: Hospitalist Vielka Reason for Consult: stroke workup Time Notified: 14:46 Call Completed: Yes 08/26/18 16:36 Consult to Neurology [CONS] Routine Consulting Provider: Neurology [facility] Reason for Consult: stroke alert Spoke with Dr. Caceres Call Completed: Yes Discharging clinician: Juan Jose De La Cruz Anticipated date of discharge: 08/28/18 - Impressions Knee X-Ray 08/24/18 00:01 IMPRESSION: Stable appearance of left knee arthroplasty. No acute osseous abnormality. D/ / 08/24/2018 15:44:18 Scotty Pena MD / [facility] Interpreting Provider: Scotty Pena MD Head CT 08/26/18 00:00 IMPRESSION: 1. Findings consistent with presence of focal area of encephalomalacia in the left frontoparietal region suggestive of prior infarct. This represents a new finding when compared to study of 05/27/2012 as described. 2. Tiny focus of low attenuation in the superior right cerebellar hemisphere. Finding may represent volume averaging of sulcus versus tiny focus of remote ischemic change as well. 3. No definite evidence of acute intracranial abnormality. Follow-up MRI examination with diffusion imaging may be helpful for more complete evaluation. Critical results were called by Dr. Zev Santana MD to Scott Barbosa on 08/26/2018 at 14:50. D/ / 08/26/2018 14:58:44 Zev Santana MD / [facility] Interpreting Provider: Zev Santana MD Brain MRI 08/26/18 16:42 IMPRESSION: No acute infarct. D/ / Ryder Benitez MD / Ryder Benitez MD Interpreting Provider: Ryder Benitez MD Echocardiogram 08/27/18 11:00 Impressions: LVEF 65-70%. Normal LV chamber size, wall thickness and function. Normal right ventricular structure and function. Mild aortic regurgitation. No pulmonary hypertension. Non-diagnostic of PFO with agitated saline contrast. Left Ventricular Wall Motion: Rest Echo Findings All wall segments showed normal motion. Findings: Study Quality * Technically sub-optimal due to poor echocardiographic windows. ECG Findings * Normal sinus rhythm. Left Ventricle * LVEF 65-70%. * Normal LV chamber size, wall thickness and function. * Normal left ventricular diastolic function. Right Ventricle * Normal right ventricular structure and function. Left Atrium * Normal left atrial size. Right Atrium * Normal right atrial size. Interatrial Septum * Interatrial septum not well evaluated. * Non-diagnostic of PFO with agitated saline contrast. Aortic Valve * Trileaflet aortic valve. * No aortic stenosis. * Mild aortic regurgitation. Mitral Valve * Normal mitral valve structure. * No mitral stenosis. * No mitral regurgitation. Tricuspid Valve * Normal tricuspid valve structure. * No tricuspid stenosis. * Trace tricuspid regurgitation. * Estimated RVSP is 18 mmHg. * Estimated RA pressure is 3 mmHg. * No pulmonary hypertension. Pulmonic Valve * Pulmonic valve is not well visualized. * No pulmonic stenosis. * No pulmonic regurgitation. Aorta * Normally sized aortic root. Pericardium * The pericardium appears normal. IVC * Normal IVC dimensions and inspiratory collapse. 08/27/18 23:03 - Vascular Preliminary by Meaghan Palm Acct Num: [id number] : 1965 Patient Age: 52 Carotid Duplex Bilateral carotid duplex appears to be 40-59% stenosis in the left distal ICA and non stenotic plaque in the right distal CCA and bifurcation. Initialized on 08/27/18 23:03 - END OF NOTE - Patient Status Disposition: Home Health Service Condition: Good Functional capacity at discharge: uses cane/walker Overall status at discharge: patient is back to baseline - Discharge Instructions Follow Up With: Milka Ram PAC [Physician Honing Machine Operator Production] - 09/03/18 8:15 am (Also 09/11/18 @ 8am) Juan Jose De La Cruz MD [Partnered Physician] - 09/23/18 4:30 pm Dawn Caceres MD [Partnered Physician] - 09/01/18 8:00 am Kay Salazar CNP [Primary Care Provider] - 09/04/18 1:15 pm Additional Instructions: Weight bearing as tolerated . Keep cast clean dry and intact. Follow-up appointments: If there is not an appointment listed below, please call your physician and schedule a follow-up appointment. If you have congestive heart failure and your symptoms return, make an appointment with your physician. Medication List: Carry an up to date list of medications you are taking at all time. We have given you an updated medication list including any new medications that you have been prescribed. Please provide that list to your primary provider Symptoms: If your condition changes or you experience any of the following symptoms, notify your physician immediately: Unusual or worsening pain, fever, persistent nausea and vomiting, bleeding, increase in swelling (especially in your legs), sudden weight gain, extreme dizziness, chest pain, increased drainage or redness from a wound or incision. Go to the emergency department if you experience a problem with breathing. Weights: If you have a history of swelling or shortness of breath, weigh yourself daily and notify your physician if you have a weight gain of two or more pounds in one day or 5 or more pounds in a week. If you experience any of the warning signs for stroke: Sudden numbness or weakness of the face, arm or leg; especially on one side of the body, sudden confusion, trouble speaking or understanding, sudden trouble seeing in one or both eyes, sudden trouble walking, dizziness, loss of balance or coordination, sudden sever headache with no cause; Call 911 or go to the emergency room. Stroke is a medical emergency. Some risk factors for stroke: Age, cigarette smoking, diabetes, excessive alcohol consumption, family history, high blood pressure, overweight, physical inactivity, prior stroke, heart attack, diagnosis of carotid artery stenosis or other artery disease. If you smoke, STOP: Smoking or tobacco use significantly increases your risk of heart and lung disease. Your chance of disease greatly increases if you continue to smoke. For more information, call the [place] tobacco quit line for smoking cessation 0-651-ZJRP-NOW ( ) - Diet and Activity Activity: ambulate only with your walker, as per physical therapy Diet: advance to your usual diet
--- NOTE | 2018-08-24 16:00 | Physician Discharge Referral ---
Home Health/Hosp Referral Info Transfer to: Home Health Attending Provider: Jono - Diagnosis (1) Patellar instability of left knee Priority: Primary Status: Acute (2) Hypertension Priority: Secondary Status: Acute (3) SIMEON on CPAP Priority: Secondary Status: Acute (4) Hyperlipidemia Priority: Secondary Status: Acute (5) Anxiety and depression Priority: Secondary Status: Acute (6) Arthritis of knee, left Priority: Secondary Status: Acute (7) CVA (cerebral vascular accident) Priority: Secondary Status: Suspected (8) Chronic pain Priority: Secondary Status: Chronic (9) Lumbar radicular pain Priority: Secondary Status: Chronic (10) Right sided weakness Priority: Secondary Status: Acute - Respiratory Orders None Smoking Cessation: Smoking cessation has been advised. For more information, call the [place] Tobacco Quit Line at 2-913-MZEA-NOW. - Diet/Nutrition Diet/Nutrition Orders: Regular - Activity Activity Orders: Up ad mark, Ambulate, Chair, Walker - Services Needed Following services are medically necessary services: Nursing, Home Health Aide, Physical Therapy, Occupational Therapy Home Care Orders: Long leg cast in place to left leg. NO knee flexion WBAT with walker Apply cold therapy wrap 3-6x/day for 20 minutes at a time. Encourage ambulation throughout the day Use Incentive spirometer 10x/hour. Elevate affected extremity above heart as tolerated. - Transfer Medications Home Medications: Aripiprazole [Abilify] 20 mg PO DAILY 11/04/16 [History] Clopidogrel Bisulfate [Plavix] 75 mg PO DAILY 11/04/16 [History] ALPRAZolam [Xanax 1 MG Tablet] 1 mg PO TID PRN 02/03/17 [History] Aspirin [Lo-Dose Aspirin EC] 81 mg PO DAILY 02/03/17 [History] Atorvastatin Calcium [Lipitor] 20 mg PO HS 02/03/17 [History] Multivitamin [One Daily Essential] 1 each PO DAILY 02/03/17 [History] Paroxetine HCl [Paxil] 40 mg PO DAILY 02/03/17 [History] Lisinopril [Zestril] 10 mg PO DAILY 11/21/17 [History] HYDROcodone/Acet 5/325 mg [[place] 5-325 mg] 1 tab PO Q6H PRN 4 Days #12 tab 05/29/18 [Rx] Aspirin Enteric Coated [Aspirin EC] 325 mg PO BID #20 tablet. 08/23/18 [Rx] Docusate [Colace] 100 mg PO BID 10 Days #20 capsule 08/23/18 [Rx] OxyCODONE Immed Rel [Roxicodone 5 MG] 5 mg PO Q6HR PRN 7 Days #28 tablet 08/23/18 [Rx] Allergies/Adverse Reactions: Allergy/AdvReac Type Severity Reaction Status Date / Time ciprofloxacin [From Cipro] AdvReac Hives Verified 08/24/18 12:48 Certification: Further, I certify that my clinical findings support that this patient is homebound (i.e. absences from home require considerable and taxing effort and are for medical reasons or pent[employer] services or infrequently or short duration when for other reasons) because: Homebound Reason: Post-surgery restriction and or conditions limit ability to leave home Attestation: My signature below is to certify that this patient is under my care and that I, or nurse practitioner, or a physician telecom assistant working with me, has a [id number] encounter with this patient.
[2018-08-24 16:06] LABS: Hematocrit 36.9 % (35.3-44.9); Hemoglobin 11.3 g/dL (11.5-15.4)
--- NOTE | 2018-08-24 16:06 | Anesthesia Evaluation Post Op ---
Date of Encounter: 08/24/18 Time of Encounter: 16:05 - Vital Signs Vital Signs: Vital Signs/O2 Sat, Most Current Temp Pulse Resp BP Pulse Ox 99.5 F 91 14 129/74 96 08/24/18 15:51 08/24/18 15:51 08/24/18 15:51 08/24/18 15:51 08/24/18 15:51 - Lungs Lungs: Clear Ascult./Percussion - Airway Airway: Non-obstructed - Cardiovascular Regular Rate - Mental Status Mental Status: Alert & Oriented, Answers Appropriately - Pain Pain Scale: 0 Pain Scale used: Numeric (1 - 10) - Nausea Vomiting Nausea Vomiting: Not Present - Hydration Hydration: Ice chips, Has not voided - Discharge PostOp Status: Transfer Patient to floor
[2018-08-24] MEDS ORDERED: Sennosides 8.6 MG TABLET PO PRN (16:09)
[2018-08-24] MEDS ORDERED: Ondansetron 4 MG/2 ML VIAL IVP PRN (16:09)
[2018-08-24] MEDS ORDERED: MOM Conc 10 ML UD.LIQ PO PRN (16:09)
[2018-08-24] MEDS ORDERED: Naloxone 0.4 MG/ML INJ IVP PRN (16:09)
[2018-08-24] MEDS: traMADol 50 MG TABLET PO PRN (17:21)
[2018-08-24] MEDS: *HR* Enoxaparin 30 MG/0.3 ML SYRINGE SQ SCH (17:22)
[2018-08-24] MEDS ORDERED: *HR* Enoxaparin 30 MG/0.3 ML SYRINGE SQ SCH (18:00)
[2018-08-24] MEDS: *HR* OxyCODONE Immed Rel 5 MG TABLET PO PRN (20:41)
[2018-08-24] MEDS: ceFAZolin sodium 3,000 MG in 0.9 % Sodium Chloride 100 ML IVPB SCH (20:45)
[2018-08-25] MEDS: ALPRAZolam 1 MG TABLET PO PRN ×2 (00:28→15:08)
[2018-08-25] MEDS: ceFAZolin sodium 3,000 MG in 0.9 % Sodium Chloride 100 ML IVPB SCH (06:18)
[2018-08-25] MEDS: *HR* OxyCODONE Immed Rel 5 MG TABLET PO PRN ×5 (06:19→23:44)
--- NOTE | 2018-08-25 06:41 | Orthopedics Progress Note ---
Date of Encounter: 08/25/18 Time of Encounter: 06:41 Subjective Interval history: Patient was seen this morning doing well without complaints. Afebrile vital signs stable. Operative extremity: Neurovascularly intact Cast intact Assessment and plan: Continue with postoperative care Hematocrit 36 plan for discharge tomorrow Objective Vital signs: Vital Signs Temp Pulse Resp BP Pulse Ox 08/25/18 03:54 97.7 F 86 15 103/70 93 08/24/18 23:08 98.2 F 106 17 116/80 93 08/24/18 18:46 98.0 F 99 16 126/87 94 08/24/18 18:12 97.5 F L 99 18 123/88 95 08/24/18 17:15 97.4 F L 97 16 135/88 95 08/24/18 16:46 98.6 F 96 18 95 08/24/18 16:15 98.4 F 96 16 125/83 95 08/24/18 16:01 99.5 F 95 14 118/73 97 08/24/18 15:51 99.5 F 91 14 129/74 96 08/24/18 15:41 94 14 120/86 98 08/24/18 15:31 95 16 144/84 98 08/24/18 15:21 97.5 F L 105 18 136/62 100 08/24/18 13:32 91 18 145/99 98 08/24/18 12:31 97.3 F L 99 18 146/95 98 Intake and Output 08/24/18 08/24/18 08/25/18 15:59 23:59 07:59 Intake Total 340 / 340 50 / 50 Output Total 100 / 100 0 / 0 Balance -100 / -100 340 / 340 50 / 50 Intake: IV Fluids 100 / 100 Ancef 3,000 MG In 0.9 % Sodium 100 / 100 Chloride 100 ML @ 200 mls/hr IVPB Q8H [facility] Rx#:[id number] Oral 240 / 240 50 / 50 Output: Urine 0 / 0 Estimated Blood Loss 100 / 100 Other: # Voids 1 0 Weight 120.202 kg 128 kg 126.9 kg Patient Weight 08/25/18 23:59 Weight 126.9 kg - Labs CBC & BMP: 08/24/18 15:38 Labs: Abnormal lab results Hgb 11.3 g/dL (11.5-15.4) L 08/24/18 15:38 Consult Discharge Plan - Plan Referrals: Kay Salazar CNP [Primary Care Provider] -
[2018-08-25] MEDS: ARIPiprazole 10 MG TABLET PO SCH (09:06)
[2018-08-25] MEDS: Aspirin Enteric Coated 81 MG Tablet PO SCH (09:07)
[2018-08-25] MEDS: Multivit/Ca/Min/Fe/FA 1 TAB TABLET PO SCH (09:07)
[2018-08-25] MEDS: *HR* Enoxaparin 30 MG/0.3 ML SYRINGE SQ SCH ×2 (09:10→17:15)
[2018-08-25 10:13] LABS: Hematocrit 32.2 % (35.3-44.9); Hemoglobin 10.4 g/dL (11.5-15.4)
[2018-08-25 10:33] LABS: BUN/Creatinine Ratio 23 (6-26); Blood Urea Nitrogen 15 mg/dL (6-20); Calcium 8.7 mg/dL (8.6-10.3); Carbon Dioxide 24 mEq/L (23-29); Chloride 105 mEq/L (98-107); Glucose 161 mg/dL (70-105); Osmolality,Calculated 288 (280-300); Potassium 3.6 mEq/L (3.5-5.1); Sodium 137 mEq/L (136-145); eGFR For Non-African Americans > 60 (> 60)
--- NOTE | 2018-08-25 17:35 | Event Note ---
Date of Encounter: 08/25/18 Time of Encounter: 12:20 PCR - POD#1 Open left medial patellofemoral ligament reconstruction with all ograft 08/24/18 Patient seen at bedside, without complaints. A&O x 3 Afebrile, vital signs stable. long leg cast intact with no skin breakdown. good motion and sensation to toes Labs reviewed. H/H - 10.4/32.2 stable, asymptomatic Pain control: adequate Participating in PT. WBAT All questions and concerns addressed. Educated on use of incentive spirometer. Encouraged ambulation and proper hydration. Patient educated on post-operative restrictions and post-operative care. Assessment and plan: Continue with postoperative care Discharge plan: Home, discharge possibly tomorrow.
[2018-08-25] MEDS: *HR* OxyCODONE/APAP 5/325 TABLET PO PRN (21:17)
[2018-08-26] MEDS: *HR* OxyCODONE/APAP 5/325 TABLET PO PRN (01:40)
[2018-08-26] MEDS: *HR* OxyCODONE Immed Rel 5 MG TABLET PO PRN ×4 (03:56→20:40)
[2018-08-26] MEDS: *HR* Enoxaparin 30 MG/0.3 ML SYRINGE SQ SCH ×2 (05:42→20:40)
[2018-08-26] MEDS: traMADol 50 MG TABLET PO PRN ×2 (05:42→23:23)
[2018-08-26 06:44] LABS: Hematocrit 31.1 % (35.3-44.9); Hemoglobin 9.9 g/dL (11.5-15.4)
[2018-08-26 07:03] LABS: BUN/Creatinine Ratio 25 (6-26); Blood Urea Nitrogen 15 mg/dL (6-20); Calcium 8.6 mg/dL (8.6-10.3); Carbon Dioxide 25 mEq/L (23-29); Chloride 103 mEq/L (98-107); Glucose 91 mg/dL (70-105); Osmolality,Calculated 286 (280-300); Potassium 3.5 mEq/L (3.5-5.1); Sodium 138 mEq/L (136-145); eGFR For Non-African Americans > 60 (> 60)
[2018-08-26] MEDS: ALPRAZolam 1 MG TABLET PO PRN (07:11)
--- NOTE | 2018-08-26 07:59 | Orthopedics Progress Note ---
Date of Encounter: 08/26/18 Time of Encounter: 07:58 Subjective Interval history: Patient was seen this morning complains of anterior knee pain. We will change the cast before discharge. Afebrile vital signs stable. Operative extremity: Neurovascularly intact Cast intact Assessment and plan: Continue with postoperative care Hematocrit 31 plan for discharge today Objective Vital signs: Vital Signs Temp Pulse Resp BP Pulse Ox 08/26/18 06:34 97.9 F 94 16 118/76 97 08/26/18 04:14 97.4 F L 89 17 116/81 94 08/25/18 23:07 98.4 F 98 15 113/78 94 08/25/18 18:28 98.6 F 95 16 120/82 95 08/25/18 17:02 98.1 F 93 15 106/72 93 08/25/18 12:02 97.5 F L 74 15 121/63 96 08/25/18 10:53 98.3 F 96 16 113/77 94 Intake and Output 08/25/18 08/25/18 08/26/18 15:59 23:59 07:59 Intake Total 220 / 220 300 / 300 200 / 200 Output Total 150 / 150 700 / 700 Balance 70 / 70 300 / 300 -500 / -500 Intake: Oral 220 / 220 300 / 300 200 / 200 Output: Urine 150 / 150 700 / 700 Other: Meal Lunch Dinner Percent of Meal Consumed 80% 55% # Voids 1 1 Weight 128.5 kg Patient Weight 08/26/18 23:59 Weight 128.5 kg - Labs CBC & BMP: 08/26/18 06:27 08/26/18 06:27 Labs: Abnormal lab results Hgb 9.9 g/dL (11.5-15.4) L 08/26/18 06:27 Hct 31.1 % (35.3-44.9) L 08/26/18 06:27 Consult Discharge Plan - Plan Referrals: Kay Salazar, ROSEMARIE [Primary Care Provider] -
[2018-08-26] MEDS: Multivit/Ca/Min/Fe/FA 1 TAB TABLET PO SCH (09:00)
[2018-08-26] MEDS: ARIPiprazole 10 MG TABLET PO SCH (09:01)
[2018-08-26] MEDS: Aspirin Enteric Coated 81 MG Tablet PO SCH (09:01)
--- NOTE | 2018-08-26 15:13 | Event Note ---
Date of Encounter: 08/26/18 Time of Encounter: 11:50 First evaluation 11:50 PCR - POD#1 Open left medial patellofemoral ligament reconstruction with allograft 08/24/18 Patient seen at bedside, without complaints. A&O x 3. Currently getting long leg cast changed due to her knee pain. Afebrile, vital signs stable. long leg cast intact with no skin breakdown. good motion and sensation to toes Labs reviewed. H/H - 9.9/31.1 stable, asymptomatic Pain control: adequate Participating in PT. WBAT All questions and concerns addressed. Educated on use of incentive spirometer. Encouraged ambulation and proper hydration. Patient educated on post-operative restrictions and post-operative care. Assessment and plan: Continue with postoperative care Discharge plan: Home with home health, plan for DC today UPDATE: Nurse later notified me that while she was reviewing the DC paperwork patient expressed concern that she was having worsening numbness and weakness to the right foot and leg. She states she did wake up the the tingling in leg that progressively worsened during day and after cast change to left leg. She thought it may have been positional but is not improving. She states this leg will get tingly if sitting in a car for a long time but usually resolves within minutes. This continues to worsen. She also noted that therapy was much more difficult for her this morning compared to yesterday and now unable to feel her foot to put weight through it in order to stand which is a significant change from yesterday. She was able to dorsiflex foot and toes, no foot drop noted. She then stated that her right arm has had progressive tingling and "feels different" starting this morning too, worsening. On exam she was tilting her head to her right side but could correct to neutral when brought to her attention. 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 She could hold both arms up equally but did have a slight tremor to right arm which she states is her baseline. She does have a history of previous stroke which did affect her right side of body. She admits the symptoms to her right arm and leg are much worse currently than usual. I discussed case with her nurse and the charge nurse and the decision was made to call a rapid response/stroke alert at that time. Patient was in agreement with this plan as well.
[2018-08-26 15:35] LABS: Basophils % 0.5 %; Eosinophils # 0.1 K/mcL (0.0-0.6); Eosinophils % 1.2 %; Hematocrit 31.9 % (35.3-44.9); Hemoglobin 10.3 g/dL (11.5-15.4); Immature Granulocytes % 0.3 % (0-4); Mean Corpuscular HGB Conc 32.3 g/dL (31.6-35.5); Mean Corpuscular Hemoglobin 31.7 pg (28.0-33.3); Mean Corpuscular Volume 98.2 fL (83.0-100.0); Monocytes # 0.4 K/mcL (0.0-1.3); Monocytes % 6.9 %; Neutrophils # 3.9 K/mcL (1.6-8.9); Platelet Count 208 K/mcL (140-400); Red Blood Count 3.25 M/mcL (3.82-4.97); Segmented Neutrophils % 60.1 %
[2018-08-26 15:47] LABS: BUN/Creatinine Ratio 19 (6-26); Blood Urea Nitrogen 13 mg/dL (6-20); Calcium 8.8 mg/dL (8.6-10.3); Carbon Dioxide 29 mEq/L (23-29); Chloride 104 mEq/L (98-107); Glucose 100 mg/dL (70-105); Osmolality,Calculated 290 (280-300); Potassium 3.6 mEq/L (3.5-5.1); Sodium 140 mEq/L (136-145); eGFR For Non-African Americans > 60 (> 60)
[2018-08-26 15:48] LABS: Troponin I < 0.03 ng/mL (< 0.04)
[2018-08-26 15:49] LABS: Prothrombin Time 11.1 Seconds (9.4-12.1)
[2018-08-26 15:52] LABS: Activated Partial Thrombo Time 32.2 Seconds (26.0-36.0)
--- NOTE | 2018-08-26 16:23 | Internal Medicine Consult Note ---
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 Continuing IHSS Continue aspirin daily, increase Lipitor to 80 mg at bedtime Obtain brain MRI and echocardiogram Consult neurology for evaluation Qualifiers: CVA mechanism: unspecified Qualified Code(s): I63.9 - Cerebral infarction, unspecified - Time Spent With Patient Total time spent is greater than 50% in coordination of care (as documented) at patient's floor/unit and/or counseling patient: Internal Medicine - CN: HPI - Data of Consult Patient: new to practice Requesting Physician: Juan Jose De La Cruz MD - Consult Narrative Reason for consult: TIA, Stroke alert History of present illness: Ms. Chong is a 52 YO F with PMH of CVA , anxiety and depression, obstructive sleep apnea on CPAP, hypertension, osteoarthritis, was admitted by the orthopedic team for a left knee surgery. Surgery. The patient is postop day 2 today. Rapid response was called on the patient due to complaints of right upper and lower strength rate numbness. She had no speech slurring, she had no facial paralysis. She had no focal motor weakness. She is on daily baby aspirin as well as Lipitor due to prior history of multiple ischemic CVAs. She has a residual deficit of word-finding difficulty, RUE and LE numbness and tingling, and occasional attention deficit At time of review, with spouse at the bedside, she reports some improvement but not total resolution Stat Head CAT scan done showed encephalomalacia in the left frontoparietal region which is chronic. Right cerebellar remote infarct. There was no acute intracranial abnormality. Patients vital signs were stable. Labs from today were noted to be normal. Medicine was consulted for evaluation due to suspected CVA. We will recommend a brain MRi and ECHO to complete the CVA work up. She has had a prior PFO closure and has a loop recorder (follows at [facility]). We will recommend awaiting all these results prior to patient's discharge We have also increased lipitor to 80mg HS at this time, check A1C and lipid panel with am labs Keep on telemetry Plan of care discussed with patient and her partner who verbalized understanding Other medical problems remain stable Past Med Surg Social Fam HX - Past Medical History Medical history: CVA, hyperlipidemia, hypertension Additional medical history: lumbar DDD Psychiatric history: anxiety, depression - Past Surgical History Surgical History: cholecystectomy, hysterectomy Additional surgical history: Tonsillectomy. Left total knee - Social History Smoking Status: Never smoker Smokeless Tobacco Status: No Alcohol use: none Drug use: none - Family History Father Living Status: Cause of : 71 Hx Family Cardiac Disorders: Yes Hx Family Cancer: Yes (prostate with mets) - Constitutional Constitutional: as per HPI - Neurological Neurological ROS: as per HPI Internal Medicine - CN: Meds Aripiprazole [Abilify] 20 mg PO DAILY 11/04/16 [History] Clopidogrel Bisulfate [Plavix] 75 mg PO DAILY 11/04/16 [History] ALPRAZolam [Xanax 1 MG Tablet] 1 mg PO TID PRN 02/03/17 [History] Aspirin [Lo-Dose Aspirin EC] 81 mg PO DAILY 02/03/17 [History] Atorvastatin Calcium [Lipitor] 20 mg PO HS 02/03/17 [History] Multivitamin [One Daily Essential] 1 each PO DAILY 02/03/17 [History] Paroxetine HCl [Paxil] 40 mg PO DAILY 02/03/17 [History] Lisinopril [Zestril] 10 mg PO DAILY 11/21/17 [History] HYDROcodone/Acet 5/325 mg [Springer 5-325 mg] 1 tab PO Q6H PRN 4 Days #12 tab 05/29/18 [Rx] Aspirin Enteric Coated [Aspirin EC] 325 mg PO BID #20 tablet. 08/23/18 [Rx] Docusate [Colace] 100 mg PO BID 10 Days #20 capsule 08/23/18 [Rx] OxyCODONE Immed Rel [Roxicodone 5 MG] 5 mg PO Q6HR PRN 7 Days #28 tablet 08/23/18 [Rx] Allergy/AdvReac Type Severity Reaction Status Date / Time ciprofloxacin [From Cipro] AdvReac Hives Verified 08/24/18 12:48 Hospitalist - CN: Exam - Constitutional Vitals: Temp Pulse Resp BP Pulse Ox 97.6 F 96 16 109/72 95 08/26/18 15:26 08/26/18 15:26 08/26/18 15:26 08/26/18 15:26 08/26/18 15:26 General appearance IM: Present: A&O X 3, morbidly obese, pleasant, no acute distress Exam: See below - Respiratory Respiratory exam: Present: CTAB - Cardiovascular Cardiovascular exam IM: Present: RRR, +S1, +S2. Absent: systolic murmur, tachycardia - GI/Abdominal GI/Abdominal exam IM: Present: soft, no peritoneal signs. Absent: tenderness - Extremities Exam Additional comments: LLE in cast RLE with sensation deficit - Neurological Exam Neurological exam: Present: alert, motor sensory deficit, oriented X3, strengths equal and symetr throughout, speech deficit (word-finding difficulty). Absent: facial droop Internal Medicine - CN: Reslt - Labs CBC & Chem 7: 08/26/18 14:44 08/26/18 14:44 Labs: Short CBC 08/26/18 08/26/18 Range/Units 06:27 14:44 WBC 6.4 D (4.3-11.1) K/mcL Hgb 9.9 L 10.3 L (11.5-15.4) g/dL Hct 31.1 L 31.9 L (35.3-44.9) % Plt Count 208 (140-400) K/mcL Neutrophils # 3.9 (1.6-8.9) K/mcL BMP 08/26/18 08/26/18 06:27 14:44 Sodium 138 140 Potassium 3.5 3.6 Chloride 103 104 Carbon Dioxide 25 29 BUN 15 13 Creatinine 0.61 0.67 Glucose 91 100 Calcium 8.6 8.8 Cardiac Enzymes 08/26/18 Range/Units 14:44 Troponin I < 0.03 (< 0.04) ng/mL - ABG Interpretation ABG results: PT/INR, D-dimer PT 11.1 Seconds (9.4-12.1) 08/26/18 14:44 - Impressions Impressions Head CT 08/26/18 00:00 IMPRESSION: 1. Findings consistent with presence of focal area of encephalomalacia in the left frontoparietal region suggestive of prior infarct. This represents a new finding when compared to study of 05/27/2012 as described. 2. Tiny focus of low attenuation in the superior right cerebellar hemisphere. Finding may represent volume averaging of sulcus versus tiny focus of remote ischemic change as well. 3. No definite evidence of acute intracranial abnormality. Follow-up MRI examination with diffusion imaging may be helpful for more complete evaluation. Critical results were called by Dr. Zev Santana MD to Scott Barbosa on 08/26/2018 at 14:50. D/ / 08/26/2018 14:58:44 Zev Santana MD / [facility] Interpreting Provider: Zev Santana MD Consult Discharge Plan - Plan Additional Instructions: Weight bearing as tolerated . Keep cast clean dry and intact. Follow-up appointments: If there is not an appointment listed below, please call your physician and schedule a follow-up appointment. If you have congestive heart failure and your symptoms return, make an appointment with your physician. Medication List: Carry an up to date list of medications you are taking at all time. We have given you an updated medication list including any new medications that you have been prescribed. Please provide that list to your primary provider Symptoms: If your condition changes or you experience any of the following symptoms, notify your physician immediately: Unusual or worsening pain, fever, persistent nausea and vomiting, bleeding, increase in swelling (especially in your legs), sudden weight gain, extreme dizziness, chest pain, increased drainage or redness from a wound or incision. Go to the emergency department if you experience a problem with breathing. Weights: If you have a history of swelling or shortness of breath, weigh yourself daily and notify your physician if you have a weight gain of two or more pounds in one day or 5 or more pounds in a week. If you experience any of the warning signs for stroke: Sudden numbness or weakness of the face, arm or leg; especially on one side of the body, sudden confusion, trouble speaking or understanding, sudden trouble seeing in one or both eyes, sudden trouble walking, dizziness, loss of balance or coordination, sudden sever headache with no cause; Call 911 or go to the emergency room. Stroke is a medical emergency. Some risk factors for stroke: Age, cigarette smoking, diabetes, excessive alcohol consumption, family history, high blood pressure, overweight, physical inactivity, prior stroke, heart attack, diagnosis of carotid artery stenosis or other artery disease. If you smoke, STOP: Smoking or tobacco use significantly increases your risk of heart and lung disease. Your chance of disease greatly increases if you continue to smoke. For more information, call the [place] tobacco quit line for smoking cessation 5-285-FUSL-NOW ( ) Referrals: Milka Ram PAC [Physician Hydraulic Strainer Operator] - 09/03/18 8:15 am Kay Salazar CNP [Primary Care Provider] -
--- NOTE | 2018-08-26 16:39 | Event Note ---
<Scott Barbosa - Last Filed: 08/26/18 17:16> Date of Encounter: 08/26/18 Time of Encounter: 02:20 Stroke Alert Note Rapid response called to 3 NE19 within 2 minutes of evaluation it was determined patient maybe suffering from a stroke with right-sided weakness and slurring of speech worse from her baseline. Patient was immediately brought down for CT of the brain and then to the emergency department for evaluation by [facility] stroke. - Last well known was around 1305 - Symptoms noted around 1410 - Vital signs during evaluation at rapid response does not have any concerning findings. Patient was regular rate rhythm, respiratory rate appropriate, oxygen saturations appropriate, glucose 106 Physical Exam: Gen. drowsy, awake and interactive, difficulty with word finding HEENT: bilateral eyelids drooping, right facial droop, tongue deviated to the right, head with a right tilt, PERRLA, speech slightly slurred, trachea midline. Cardiac: Regular rate rhythm positive S1-S2, radial pulses 2+ bilateral Respiratory: Clear to auscultation bilateral Extremities: Right upper extremity demonstrated 4-5 muscle strength and patient demonstrated difficulty with motion of her right upper extremity, left upper extremity 5 out of 5 muscle strength, auto tech strength symmetric, left lower extremity in a cast postoperatively, right lower extremity had 3 out of 5 muscle strength with knee and hip extension, foot drop on the right side Neuro: Ocular motion in all guy intact, visual guy intact, speech slurred, right facial droop and tongue deviation to the right side, sensation intact bilateral upper extremities and in bilateral toes. Muscle strength is discussed above. CT of the brain did not demonstrate any acute bleeding, midline shift, did show old infarct with newer findings since the last CT scan but nothing demonstrating an acute or subacute infarct. Patient evaluated by [facility] stroke Dr. Jiang, review of her medical history with recent postop, on antiplatelet therapy, and current symptoms just mildly change from her baseline determined not to be a TPA candidate. Plan: - Continue Plavix and aspirin - With findings of ischemic stroke that are dated but newer since her last CT scan was concerning that she has other causes such as arrhythmia or blood clots for her stroke and may need anticoagulation. - Stroke order set placed with frequent [facility] evaluation - Old opiate medication to see if this improves her symptoms as may be due to fatigue or lethargy. - Consult placed to Dr. OG with [facility] for evaluation - Requested information for [place] loop recorder data - Increase atorvastatin 80 mg - Cardiac monitoring - Echocardiogram - Patient to be evaluated by internal medicine service. <Ronen Porras - Last Filed: 08/26/18 17:29> Date of Encounter: 08/26/18 Agree with plan, see my consult note for additional information
[2018-08-26] MEDS ORDERED: Fluconazole 100 MG TABLET PO ONE (22:46)
[2018-08-26] MEDS: Temazepam 15 MG CAPSULE PO PRN (22:51)
[2018-08-27] MEDS: *HR* OxyCODONE Immed Rel 5 MG TABLET PO PRN ×3 (01:57→13:36)
[2018-08-27] MEDS: *HR* Enoxaparin 30 MG/0.3 ML SYRINGE SQ SCH ×2 (06:43→17:53)
[2018-08-27 07:44] LABS: Prothrombin Time 11.7 Seconds (9.4-12.1)
--- NOTE | 2018-08-27 07:56 | Orthopedics Progress Note ---
Date of Encounter: 08/27/18 Time of Encounter: 07:56 Subjective Interval history: Patient was seen this morning doing better this morning, workup for stroke negative Afebrile vital signs stable. Operative extremity: Neurovascularly intact Cast intact Assessment and plan: Continue with postoperative care Foot in plantar flexion will change cast today before discharge. Objective Vital signs: Vital Signs Temp Pulse Resp BP Pulse Ox 08/27/18 06:25 98.3 F 84 16 106/73 95 08/27/18 04:13 98.5 F 87 17 108/80 96 08/26/18 23:13 98.3 F 80 18 126/85 97 08/26/18 19:37 98.6 F 103 18 138/84 96 08/26/18 15:26 97.6 F 96 16 109/72 95 08/26/18 09:53 97.9 F 87 16 123/78 98 Intake and Output 08/26/18 08/26/18 08/27/18 15:59 23:59 07:59 Intake Total 300 / 300 200 / 200 200 / 200 Output Total 200 / 200 400 / 400 Balance 100 / 100 -200 / -200 200 / 200 Intake: Oral 300 / 300 200 / 200 200 / 200 Output: Urine 200 / 200 400 / 400 Other: # Voids 1 Blood Glucose* 148 118 - Labs CBC & BMP: 08/26/18 14:44 08/26/18 14:44 Labs: Abnormal lab results RBC 3.25 M/mcL (3.82-4.97) L 08/26/18 14:44 Hgb 10.3 g/dL (11.5-15.4) L 08/26/18 14:44 Hct 31.9 % (35.3-44.9) L 08/26/18 14:44 POC Glucose 118 mg/dL (70-99) H 08/27/18 05:09 Consult Discharge Plan - Plan Additional Instructions: Weight bearing as tolerated . Keep cast clean dry and intact. Follow-up appointments: If there is not an appointment listed below, please call your physician and schedule a follow-up appointment. If you have congestive heart failure and your symptoms return, make an appointment with your physician. Medication List: Carry an up to date list of medications you are taking at all time. We have given you an updated medication list including any new medications that you have been prescribed. Please provide that list to your primary provider Symptoms: If your condition changes or you experience any of the following symptoms, notify your physician immediately: Unusual or worsening pain, fever, persistent nausea and vomiting, bleeding, increase in swelling (especially in your legs), sudden weight gain, extreme dizziness, chest pain, increased drainage or redness from a wound or incision. Go to the emergency department if you experience a problem with breathing. Weights: If you have a history of swelling or shortness of breath, weigh yourself daily and notify your physician if you have a weight gain of two or more pounds in one day or 5 or more pounds in a week. If you experience any of the warning signs for stroke: Sudden numbness or weakness of the face, arm or leg; especially on one side of the body, sudden confusion, trouble speaking or understanding, sudden trouble seeing in one or both eyes, sudden trouble walking, dizziness, loss of balance or coordination, sudden sever headache with no cause; Call 911 or go to the emergency room. Stroke is a medical emergency. Some risk factors for stroke: Age, cigarette smoking, diabetes, excessive alcohol consumption, family history, high blood pressure, overweight, physical inactivity, prior stroke, heart attack, diagnosis of carotid artery stenosis or other artery disease. If you smoke, STOP: Smoking or tobacco use significantly increases your risk of heart and lung disease. Your chance of disease greatly increases if you continue to smoke. For more information, call the [place] tobacco quit line for smoking cessation 3-522-VYVR-NOW ( ) Referrals: Milka Ram PAC [Physician Intervention Teacher] - 09/03/18 8:15 am Kay Salazar PRODUCTION WORKER [Primary Care Provider] -
[2018-08-27 07:58] LABS: Troponin I < 0.03 ng/mL (< 0.04)
[2018-08-27 08:02] LABS: Alanine Aminotransferase 10 Units/L (7-52); Albumin 3.7 g/dL (3.5-5.7); Albumin/Globulin Ratio 1.4 (1.1-2.2); Alkaline Phosphatase 99 Units/L (34-104); Aspartate Amino Transferase 17 Units/L (13-39); BUN/Creatinine Ratio 21 (6-26); Bilirubin,Total 0.4 mg/dL (0.3-1.0); Blood Urea Nitrogen 11 mg/dL (6-20); Calcium 8.6 mg/dL (8.6-10.3); Carbon Dioxide 25 mEq/L (23-29); Chloride 103 mEq/L (98-107); Chol/HDL Ratio 2.3 (0-4.9); Cholesterol 112 mg/dL (< 200); Globulin 2.6 g/dL (2.4-3.5); Glucose 94 mg/dL (70-105); HDL Cholesterol 48 mg/dL (40-59); LDL Cholesterol,Calculated 41 mg/dL (0-99); Osmolality,Calculated 287 (280-300); Potassium 3.5 mEq/L (3.5-5.1); Sodium 139 mEq/L (136-145); Total Protein 6.3 g/dL (6.4-8.9); Triglycerides 113 mg/dL (< 150); eGFR For Non-African Americans > 60 (> 60)
[2018-08-27] MEDS: Multivit/Ca/Min/Fe/FA 1 TAB TABLET PO SCH (09:03)
[2018-08-27] MEDS: Aspirin Enteric Coated 81 MG Tablet PO SCH (09:04)
[2018-08-27] MEDS: ARIPiprazole 10 MG TABLET PO SCH (09:04)
[2018-08-27 09:24] LABS: Estimated Average Glucose 105 mg/dl; Hemoglobin A1C 5.3 %
--- NOTE | 2018-08-27 11:29 | Neurology - Consult Note ---
Addendum entered and electronically signed by Dawn Caceres MD 08/27/18 16:46: Patient seen and examined in the presence of Dr. Abraham Alba and i agree with his physical examination, assessment and plan. Patient is feeling better today, in terms of her right sided numbness and weakness. Right hand shows no drift, and she is able to lift right left up in the air now. Still complains some tingling to right leg. Has pain to the left knee. Overall speaking neurological status related to the right side weakness and tingling improving. She suppose to have some residual right sided paresis or paresthesia related to the previous left MCA territory infarct, although her baseline neurological status is unknown. At this time, there is no evidence of new neurological pathology. Will recommend continue medical and post surgical care. Will sign off at this time. Please call if any questions Original Note: Date of Encounter: 08/27/18 Time of Encounter: 11:22 Assessment and Plan (1) Right sided weakness Current Visit: Yes Status: Acute - On 08/26, patient developed right-sided weakness worse compared to her baseline - Known history of prior CVA in 2016; patient reports that she does have residual right-sided facial droop and weakness - She reports that since yesterday, her symptoms have improved, although she is still not back to baseline - On exam, patient has slight right-sided facial droop, 4 out of 5 strength right upper extremity, 3 out of 5 strength right lower extremity CT head demonstrated the following: - Findings consistent with presence of focal area of encephalomalacia in the left frontoparietal region suggestive of prior infarct - Tiny focus of low attenuation in the superior right cerebellar hemisphere. - Finding may represent volume averaging of sulcus versus tiny focus of remote ischemic change as well. - No definite evidence of acute intracranial abnormality MRI performed on 08/27 demonstrated no acute infarct Plan: - Continue aspirin, Plavix, atorvastatin - Continues stroke precautions - Patient should be seen by physical therapy History of Present Illness HPI: Ms. Chong is a 52 year old female with a PMH of CVA in 2016, anxiety, and de pression, obstructive sleep apnea on CPAP, hypertension, and osteoarthritis who was admitted by the orthopedic team to [facility] for a left knee surgery on 08/24/18. 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 Patient tolerated the procedure well, and her left leg is immobilized in a cast. On 08/26, a rapid response was called due to the concern that the patient might be suffering from a stroke. Per that note, patient had right-sided weakness and slurring of her speech, which is worse from her baseline. Patient does have residual right-sided weakness from her CVA in 2016. Patient reported that she felt weak, particularly in her right leg. Patient was assessed at the time, and was found to have bilateral eyelid drooping, right-sided facial droop, tongue deviation to the right, right-sided head tilt, and slurring of her speech. Patient also reported tingling in her right hand. An MRI of the brain was ordered, which showed no acute intracranial abnormalities. Patient was already on aspirin and Plavix from her previous CVA. Her atorvastatin was increased to 80 mg. She was placed on cardiac monitoring, and an echocardiogram was ordered. Patient was seen and examined at bedside this morning; she says that overall, her symptoms have improved from yesterday, but she is still not back to her baseline. She reports some mild tingling in her right hand, as well as weakness in the right upper extremity and right lower extremity. She also states that her facial droop is somewhat more pronounced on the right than it is at baseline. She states that her eyelid droop however has improved. She currently denies having any headache, dizziness, visual disturbances, confusion, or other focal deficits. Patient has no further complaints at this time. Past Med Surg Social Fam HX - Past Medical History Medical history: CVA, hyperlipidemia, hypertension Additional medical history: lumbar DDD Psychiatric history: anxiety, depression - Past Surgical History Surgical History: cholecystectomy, hysterectomy Additional surgical history: Tonsillectomy. Left total knee - Social History Smoking Status: Never smoker Smokeless Tobacco Status: No Alcohol use: none Drug use: none - Family History Father Living Status: Cause of : 71 Hx Family Cardiac Disorders: Yes Hx Family Cancer: Yes (prostate with mets) Medications and Allergies Aripiprazole [Abilify] 20 mg PO DAILY 11/04/16 [History] Clopidogrel Bisulfate [Plavix] 75 mg PO DAILY 11/04/16 [History] ALPRAZolam [Xanax 1 MG Tablet] 1 mg PO TID PRN 02/03/17 [History] Aspirin [Lo-Dose Aspirin EC] 81 mg PO DAILY 02/03/17 [History] Atorvastatin Calcium [Lipitor] 20 mg PO HS 02/03/17 [History] Multivitamin [One Daily Essential] 1 each PO DAILY 02/03/17 [History] Paroxetine HCl [Paxil] 40 mg PO DAILY 02/03/17 [History] Lisinopril [Zestril] 10 mg PO DAILY 11/21/17 [History] HYDROcodone/Acet 5/325 mg [[place] 5-325 mg] 1 tab PO Q6H PRN 4 Days #12 tab 05/29/18 [Rx] Aspirin Enteric Coated [Aspirin EC] 325 mg PO BID #20 tablet. 08/23/18 [Rx] Docusate [Colace] 100 mg PO BID 10 Days #20 capsule 08/23/18 [Rx] OxyCODONE Immed Rel [Roxicodone 5 MG] 5 mg PO Q6HR PRN 7 Days #28 tablet 08/23/18 [Rx] Allergy/AdvReac Type Severity Reaction Status Date / Time ciprofloxacin [From Cipro] AdvReac Hives Verified 08/24/18 12:48 All Systems: The remainder of the systems were reviewed and are negative Physical Examination - Vital Signs Vital Signs: Initial Vital Signs Temp Pulse Resp BP Pulse Ox 97.3 F L 99 18 146/95 98 08/24/18 12:31 08/24/18 12:31 08/24/18 12:31 08/24/18 12:31 08/24/18 12:31 - Neurologic Motor examination - right side: 3/5: toe extension (EHL), plantarflexion, 4/5: deltoids, biceps, triceps, wrist flexion, wrist extension, hot stick man Motor examination - left side: 5/5: deltoids, biceps, triceps, wrist flexion, wrist extension, hot stick man Detailed sensory examination: other (Numbness and tingling present in the right hand; sensation otherwise intact) Reflexes: Brachioradialis: 2+ Mental Status Examination: awake, alert, oriented to person, oriented to place, oriented to time, follows commands appropriately, answers questions appropriately Cranial nerve examination: PERRL, EOMI, visual guy intact Results - Laboratory Findings CBC and BMP: 08/26/18 14:44 08/27/18 06:42 Abnormal lab findings: Abnormal lab results RBC 3.25 M/mcL (3.82-4.97) L 08/26/18 14:44 Hgb 10.3 g/dL (11.5-15.4) L 08/26/18 14:44 Hct 31.9 % (35.3-44.9) L 08/26/18 14:44 Creatinine 0.52 mg/dL (0.60-1.20) L 08/27/18 06:42 POC Glucose 118 mg/dL (70-99) H 08/27/18 05:09 Serum Total Protein 6.3 g/dL (6.4-8.9) L 08/27/18 06:42 Consult Discharge Plan - Plan Additional Instructions: Weight bearing as tolerated . Keep cast clean dry and intact. Follow-up appointments: If there is not an appointment listed below, please call your physician and schedule a follow-up appointment. If you have congestive heart failure and your symptoms return, make an appointment with your physician. Medication List: Carry an up to date list of medications you are taking at all time. We have given you an updated medication list including any new medications that you have been prescribed. Please provide that list to your primary provider Symptoms: If your condition changes or you experience any of the following symptoms, notify your physician immediately: Unusual or worsening pain, fever, persistent nausea and vomiting, bleeding, increase in swelling (especially in your legs), sudden weight gain, extreme dizziness, chest pain, increased drainage or redness from a wound or incision. Go to the emergency department if you experience a problem with breathing. Weights: If you have a history of swelling or shortness of breath, weigh yourself daily and notify your physician if you have a weight gain of two or more pounds in one day or 5 or more pounds in a week. If you experience any of the warning signs for stroke: Sudden numbness or weakness of the face, arm or leg; especially on one side of the body, sudden confusion, trouble speaking or understanding, sudden trouble seeing in one or both eyes, sudden trouble walking, dizziness, loss of balance or coordination, sudden sever headache with no cause; Call 911 or go to the emergency room. Stroke is a medical emergency. Some risk factors for stroke: Age, cigarette smoking, diabetes, excessive alcohol consumption, family history, high blood pressure, overweight, physical inactivity, prior stroke, heart attack, diagnosis of carotid artery stenosis or other artery disease. If you smoke, STOP: Smoking or tobacco use significantly increases your risk of heart and lung disease. Your chance of disease greatly increases if you continue to smoke. For more information, call the [place] tobacco quit line for smoking cessation 7-782-DSZD-NOW ( ) Referrals: Milka Ram PAC [Physician Photographer Finish] - 09/03/18 8:15 am Kay Salazar, TEACHER EDUCATION INSTRUCTOR [Primary Care Provider] -
[2018-08-27] MEDS: ALPRAZolam 1 MG TABLET PO PRN (15:26)
--- NOTE | 2018-08-27 17:13 | Event Note ---
Date of Encounter: 08/27/18 Time of Encounter: 17:08 A/P 1. Weakness. Hx of CVA. Pt's at bedside. Pt states numbness and tingling on right side of her body. reports residual weakness from previous CVA. MRI brain negative for acute CVA. Echo reviewed, non-diagnnostic of PFO with agitated bubble study. She has had a prior PFO closure and has a loop recorder (follows at [facility]). Seen by neurology and recommends PT eval. Continue ASA, plavix, and statin. Medically stable at this time. Follow up out pt with PCP and or neurologist as recommended. Physical exam: General appearance IM: Present: A&O X 3, morbidly obese, pleasant, no acute distress Exam: See below - Respiratory Respiratory exam: Present: CTAB - Cardiovascular Cardiovascular exam IM: Present: RRR, +S1, +S2. Absent: systolic murmur, tachycardia - GI/Abdominal GI/Abdominal exam IM: Present: soft, no peritoneal signs. Absent: tenderness - Extremities Exam Additional comments: LLE in cast RLE with sensation deficit - Neurological Exam Neurological exam: Present: alert, motor sensory deficit, oriented X3, strengths equal and symetr throughout, speech deficit (word-finding difficulty). Absent: facial droop
[2018-08-27] MEDS: *HR* OxyCODONE/APAP 5/325 TABLET PO PRN (17:59)
--- NOTE | 2018-08-27 20:37 | Event Note ---
Date of Encounter: 08/27/18 Time of Encounter: 13:15 PCR - POD#3 Open left medial patellofemoral ligament reconstruction with allograft 08/24/18 Patient seen at bedside, without complaints. A&O x 3. States she is feeling better. Still has a little residual tingling to right leg but much improved and weakness has improved. She states she is more comfortable in therapy Afebrile, vital signs stable. long leg cast intact with no skin breakdown. foot still slightly in plantar flexion but improved from previous cast, patient states she is able to walk better in this one and does not cause a tripping hazard. good motion and sensation to toes Labs reviewed. stable, asymptomatic Pain control: adequate Participating in PT. WBAT All questions and concerns addressed. Educated on use of incentive spirometer. Encouraged ambulation and proper hydration. Patient educated on post-operative restrictions and post-operative care. Stroke Workup negative for new stroke - CT head, MRI no acute intracranial abnormalities Echo pending Appreciate hospitalist and neurologist recommendations. Assessment and plan: Continue with postoperative care Discharge plan: Home with home health, once medically cleared.
[2018-08-27] MEDS: traMADol 50 MG TABLET PO PRN (20:52)
[2018-08-28] MEDS: *HR* OxyCODONE Immed Rel 5 MG TABLET PO PRN ×3 (00:15→12:50)
[2018-08-28] MEDS: Temazepam 15 MG CAPSULE PO PRN (00:16)
[2018-08-28] MEDS: *HR* Enoxaparin 30 MG/0.3 ML SYRINGE SQ SCH (05:22)
--- NOTE | 2018-08-28 07:56 | Orthopedics Progress Note ---
Date of Encounter: 08/28/18 Time of Encounter: 07:54 Subjective Interval history: Patient was seen this morning doing better this morning, Afebrile vital signs stable. Operative extremity: Neurovascularly intact Cast intact Assessment and plan: Continue with postoperative care dc today Objective Vital signs: Vital Signs Temp Pulse Resp BP Pulse Ox 08/28/18 07:04 99.3 F 97 16 102/69 93 08/27/18 22:54 98.8 F 92 17 104/69 94 08/27/18 18:35 98.1 F 91 16 105/72 92 08/27/18 11:02 97.9 F 96 18 120/86 94 08/27/18 09:00 110/77 Intake and Output 08/27/18 08/27/18 08/28/18 15:59 23:59 07:59 Intake Total 480 / 480 Output Total 650 / 650 Balance -170 / -170 Intake: Oral 480 / 480 Output: Urine 650 / 650 Other: Meal Lunch Percent of Meal Consumed 100% Blood Glucose* 92 - Labs CBC & BMP: 08/26/18 14:44 08/27/18 06:42 Labs: Abnormal lab results RBC 3.25 M/mcL (3.82-4.97) L 08/26/18 14:44 Hgb 10.3 g/dL (11.5-15.4) L 08/26/18 14:44 Hct 31.9 % (35.3-44.9) L 08/26/18 14:44 Creatinine 0.52 mg/dL (0.60-1.20) L 08/27/18 06:42 POC Glucose 118 mg/dL (70-99) H 08/27/18 05:09 Serum Total Protein 6.3 g/dL (6.4-8.9) L 08/27/18 06:42 Consult Discharge Plan - Plan Additional Instructions: Weight bearing as tolerated . Keep cast clean dry and intact. Follow-up appointments: If there is not an appointment listed below, please call your physician and schedule a follow-up appointment. If you have congestive heart failure and your symptoms return, make an appointment with your physician. Medication List: Carry an up to date list of medications you are taking at all time. We have given you an updated medication list including any new medications that you have been prescribed. Please provide that list to your primary provider Symptoms: If your condition changes or you experience any of the following symptoms, notify your physician immediately: Unusual or worsening pain, fever, persistent nausea and vomiting, bleeding, increase in swelling (especially in your legs), sudden weight gain, extreme dizz iness, chest pain, increased drainage or redness from a wound or incision. Go to the emergency department if you experience a problem with breathing. Weights: If you have a history of swelling or shortness of breath, weigh yourself daily and notify your physician if you have a weight gain of two or more pounds in one day or 5 or more pounds in a week. If you experience any of the warning signs for stroke: Sudden numbness or weakness of the face, arm or leg; especially on one side of the body, sudden confusion, trouble speaking or understanding, sudden trouble seeing in one or both eyes, sudden trouble walking, dizziness, loss of balance or coordination, sudden sever headache with no cause; Call 911 or go to the emergency room. Stroke is a medical emergency. Some risk factors for stroke: Age, cigarette smoking, diabetes, excessive alcohol consumption, family history, high blood pressure, overweight, physical inactivity, prior stroke, heart attack, diagnosis of carotid artery stenosis or other artery disease. If you smoke, STOP: Smoking or tobacco use significantly increases your risk of heart and lung disease. Your chance of disease greatly increases if you continue to smoke. For more information, call the [place] tobacco quit line for smoking cessation 0-690-ETEO-NOW ( ) Referrals: Milka Ram PAC [Physician Manager Resource] - 09/03/18 8:15 am Kay Salazar CNP [Primary Care Provider] -
[2018-08-28] MEDS: ALPRAZolam 1 MG TABLET PO PRN (10:26)
[2018-08-28] MEDS: Multivit/Ca/Min/Fe/FA 1 TAB TABLET PO SCH (10:26)
[2018-08-28] MEDS: Aspirin Enteric Coated 81 MG Tablet PO SCH (10:27)
[2018-08-28] MEDS: ARIPiprazole 10 MG TABLET PO SCH (10:27)
[2018-08-28 11:24] VITALS: BP 115/82
--- NOTE | 2018-08-31 12:32 | Electrocardiograph Report ---
[place] [id number] Test Date: 2018-08-26 Pat Name: Raya Chong Department: [id number] Room: [facility] Gender: F Funeral Attendant: : 1965 Requested By: Scott Barbosa Order Number: [id number] Reading MD: Irineo Sanz Measurements Intervals [place] Rate: 100 P: 46 RI: 157 QRS: -6 QRSD: 110 T: 18 QT: 355 QTc: 458 Interpretive Statements Sinus tachycardia Low voltage, precordial leads Probable left ventricular hypertrophy Electronically Signed On 08-31-2018 12:31:13 EST by Irineo Sanz
== END 2018-08-28 14:06 | disposition home health service (06) | DRG 317 ==
LOC: SAMDAY 12:08 → 3NENU 16:02
PROVIDERS: ADMIT Orthopaedic Surgery; ATTEND Orthopaedic Surgery

== ENCOUNTER 2019-09-06 06:21 | Observation (INO) ==
[2019-09-06] MEDS ORDERED: CeFAZolin Syr 2,000MG/20 ML 2,000 MG/20 ML SYRINGE IVPB ONE (06:37)
[2019-09-06] MEDS ORDERED: *HR* Propofol 200 MG/20 ML VIAL IVP ONE (06:39)
[2019-09-06] MEDS ORDERED: *HR* FentaNYL (PF) 100 MCG/2 ML VIAL ONE (06:39)
[2019-09-06] MEDS ORDERED: *HR* Midazolam HCl 2 MG/2 ML VIAL ONE (06:39)
[2019-09-06] MEDS ORDERED: Dexamethasone 4 MG/ML VIAL ONE ×2 (06:40→07:21)
[2019-09-06] MEDS ORDERED: Lidocaine -MPF 2% 2 ML VIAL ONE (06:40)
[2019-09-06] MEDS ORDERED: Ondansetron 4 MG/2 ML VIAL ONE (06:40)
[2019-09-06] MEDS ORDERED: Ringers Solution, Lactated 1,000 ML IVC SCH ×2 (06:45→09:58)
[2019-09-06] MEDS ORDERED: *HR* OxyCODONE Immed Rel 5 MG TABLET PO PRN (07:06)
[2019-09-06] MEDS ORDERED: Lidocaine -MPF 1% 2 ML AMPUL ONE (07:06)
[2019-09-06] MEDS ORDERED: Ondansetron 4 MG/2 ML VIAL IVP ONE (07:06)
[2019-09-06] MEDS ORDERED: *HR* Promethazine 25 MG/ML VIAL IVP PRN ×2 (07:06→09:58)
[2019-09-06] MEDS ORDERED: diazePAM 5 MG TABLET PO ONE (07:07)
[2019-09-06] MEDS ORDERED: Acetaminophen IV 1,000 MG/100 ML INFUS..BTL IVPB ONE (07:08)
[2019-09-06] MEDS ORDERED: Ethanol\\Acetic Acid\\Na Ace\\Ben 1,000 ML IRRIG.SOLN IR ONE (07:16)
[2019-09-06] MEDS ORDERED: Acetaminophen IV 1,000 MG/100 ML INFUS..BTL ONE (07:19)
[2019-09-06] MEDS ORDERED: Ropivacaine/PF 0.5% 30 ML VIAL ONE (07:19)
[2019-09-06] MEDS ORDERED: Ketorolac 30 MG/ML VIAL ONE (08:04)
[2019-09-06] MEDS: *HR* HYDROmorphone (PF) 1 MG/ML SYRINGE IVP PRN ×2 (08:58→09:04)
[2019-09-06] MEDS ORDERED: *HR* Labetalol 20 MG/4 ML SYRINGE IVP ONE ×2 (09:11→09:35)
[2019-09-06 09:28] LABS: Hematocrit 35.2 % (35.3-44.9); Hemoglobin 11.1 g/dL (11.5-15.4)
[2019-09-06] MEDS ORDERED: Ibuprofen 200 MG TABLET PO PRN (09:58)
[2019-09-06] MEDS ORDERED: MOM Conc 10 ML UD.LIQ PO PRN (09:58)
[2019-09-06] MEDS ORDERED: Naloxone 0.4 MG/ML INJ IVP PRN (09:58)
[2019-09-06] MEDS ORDERED: Sennosides 8.6 MG TABLET PO PRN (09:58)
[2019-09-06] MEDS ORDERED: Temazepam 15 MG CAPSULE PO PRN (09:58)
[2019-09-06] MEDS ORDERED: Ondansetron 4 MG/2 ML VIAL IVP PRN (09:58)
[2019-09-06] MEDS ORDERED: tiZANidine 4 MG TABLET PO PRN (09:58)
[2019-09-06] MEDS: HYDROcodone BIT/Homatropine 5 MG TABLET PO PRN ×3 (11:00→22:15)
[2019-09-06] MEDS: Multivit/Ca/Min/Fe/FA 1 TAB TABLET PO SCH (11:00)
[2019-09-06] MEDS: Ascorbic Acid 500 MG TABLET PO SCH ×2 (11:00→16:52)
[2019-09-06] MEDS: Gabapentin 300 MG CAPSULE PO SCH ×3 (11:00→19:55)
[2019-09-06] MEDS: ARIPiprazole 10 MG TABLET PO SCH (11:44)
[2019-09-06] MEDS: PARoxetine 30 MG TABLET PO SCH (11:44)
[2019-09-06] MEDS: ALPRAZolam 0.5 MG TABLET PO PRN (14:17)
[2019-09-06] MEDS: *HR* OxyCODONE Immed Rel 5 MG TABLET PO PRN ×2 (14:18→19:38)
[2019-09-06] MEDS: ceFAZolin 2,000 MG in 0.9 % Sodium Chloride 100 ML IVPB SCH (16:52)
[2019-09-07] MEDS: ceFAZolin 2,000 MG in 0.9 % Sodium Chloride 100 ML IVPB SCH
[2019-09-07] MEDS: *HR* OxyCODONE Immed Rel 5 MG TABLET PO PRN ×4 (00:49→13:50)
[2019-09-07 06:46] LABS: Basophils % 0.2 %; Hematocrit 30.6 % (35.3-44.9); Immature Granulocytes % 0.5 % (0-4); Lymphocytes # 1.3 K/mcL (0.6-4.6); Lymphocytes % 23.2 %; Mean Corpuscular HGB Conc 32.7 g/dL (31.6-35.5); Mean Corpuscular Hemoglobin 31.2 pg (28.0-33.3); Mean Corpuscular Volume 95.3 fL (83.0-100.0); Mean Platelet Volume 10.1 fL (9.4-12.4); Monocytes # 0.4 K/mcL (0.0-1.3); Monocytes % 6.8 %; Platelet Count 275 K/mcL (140-400); Red Blood Count 3.21 M/mcL (3.82-4.97); Red Cell Distribution Width 14.9 % (11.5-14.5); Segmented Neutrophils % 69.3 %; White Blood Count 5.7 K/mcL (4.3-11.1)
[2019-09-07 07:10] LABS: BUN/Creatinine Ratio 19 (6-26); Blood Urea Nitrogen 12 mg/dL (6-20); Calcium 8.1 mg/dL (8.6-10.3); Carbon Dioxide 22 mEq/L (23-29); Chloride 106 mEq/L (98-107); Glucose 123 mg/dL (70-105); Osmolality,Calculated 295 (280-300); Potassium 3.7 mEq/L (3.5-5.1); Sodium 142 mEq/L (136-145); eGFR For African Americans > 60 (> 60); eGFR For Non-African Americans > 60 (> 60)
[2019-09-07] MEDS: ALPRAZolam 0.5 MG TABLET PO PRN (07:47)
[2019-09-07] MEDS: ARIPiprazole 10 MG TABLET PO SCH (07:47)
[2019-09-07] MEDS: Ascorbic Acid 500 MG TABLET PO SCH (07:47)
[2019-09-07] MEDS: Multivit/Ca/Min/Fe/FA 1 TAB TABLET PO SCH (07:47)
[2019-09-07] MEDS: Gabapentin 300 MG CAPSULE PO SCH (07:47)
[2019-09-07] MEDS: PARoxetine 30 MG TABLET PO SCH (07:47)
[2019-09-07] MEDS ORDERED: Aspirin Enteric Coated 81 MG Tablet PO SCH (09:00)
[2019-09-07 10:16] VITALS: BP 152/97
== END 2019-09-07 15:07 | disposition home health service (06) ==
LOC: SAMDAY 06:21 → 3NENU 06:21
PROVIDERS: ADMIT Orthopaedic Surgery; ATTEND Orthopaedic Surgery